=== PATIENT | male | born 1940 | race Caucasian/White ===

== ENCOUNTER 2016-03-31 20:42 | Emergency (ER) | payer OTHER, MEDICARE ==
[~2016-03-31] VITALS: Ht 162.6 cm; Wt 80.7 kg
[~2016-03-31 20:42] MED LIST: ASPIRIN CHILDRE81 MG PO; ASPIRIN325 MG PO; CLOPIDOGREL75 MG PO; CRESTOR20 MG PO; FISH OIL 1,001000 MG PO; LEVOTHYROXINE0.1 M1 PO; LISINOPRIL20 MG PO
--- NOTE | 2016-03-31 21:33 | ED NEURO DEFICIT/STROKE ---
History of Present Illness General Chief Complaint: General Adult Stated Complaint: MOUTH NUMBNESS X2 DAYS Source: patient, old records Exam Limitations: no limitations Vital Signs & Intake/Output Vital Signs & Intake/Output Vital Signs Date Time Temp Pulse Resp B/P Pulse O2 O2 Flow FiO2 Ox Delivery Rate 03/317 96.4 76 16 150/70 95 Room Air 03/31 2046 97.7 86 18 209/68 95 Room Air ED Intake and Output 04/01 0000 03/31 1200 Intake Total Output Total Balance Patient 178 lb Weight Allergies Coded Allergies: penicillin G (UNKNOWN 06/03/15) Reconcile Medications Aspirin 325 MG ECT 1 TAB PO DAILY HEART HEALTH CLOPIDOGREL BISULFATE (Clopidogrel) 75 MG TABLET 1 TAB PO DAILY BLOOD THINNER (Reported) Levothyroxine Sodium 0.1 MG TAB 1 TAB PO DAILY AC THYROID (Reported) Lisinopril 40 MG TABLET 1 TAB PO DAILY BP (Reported) [place]-3/Dha/Epa/Fish Oil (Fish Oil 1,000 MG Softgel) 1,000 MG (120 MG-180 MG) CAPSULE 1 CAP PO DAILY SUPPLEMENT (Reported) Triage Note: STATES THAT HIS LIPS WERE NUMB X 3 DAYS TOOK BENADRYL AND IT WENT AWAY , STATES THAT THE NUMBNESS CAME BACK TONIGHT AND HE TOOK ANOTHER BENADRYL AND IT WENT AWAY AGAIN, STATES THAT HE HAS SORENESS IN HIS L SIDE CHEST, HAS PACEMAKER R SIDE CHEST. Triage Nurses Notes Reviewed? yes HPI: 75-year-old male with multiple medical length. He has a history of RI 2 and 7 cardiac stents, 3 days ago he started having perioral numbness and tingling, he thought maybe he was having allergic reaction and took Benadryl and symptoms resolved. This is happening again several times over the last 3 days and he currently has a symptoms now, taking Benadryl with resolution of symptoms. He also had some achiness in the left upper chest area and left proximal upper arm region on Wednesday which was 3 days ago, he attributed this to a upper position that he was sitting at table while playing cards and he states he sleeps on his left arm which can cause some aching symptoms in the arm as well. He also has tingling in both hands and believes he had a red rash to the bilateral palms that was improved with Benadryl as well. Patient has a pacemaker, he denies any palpitations or dizziness, no weakness in the arms or legs, no gait disturbances no expressive aphasia, he currently has mild upper lip tingling sensation which is his only symptoms. (IRISH CHAO) Past History Travel History Traveled to [place] past 21 day No Medical History Any Pertinent Medical History? 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 SON (myocardial infarction). Hx Contributory? Yes (IRISH CHAO) Review of Systems Review of Systems Constitutional: Reports: see HPI. EENTM: Reports: no symptoms. Respiratory: Reports: no symptoms. Cardiovascular: Reports: see HPI. GI: Reports: no symptoms. Genitourinary: Reports: no symptoms. Musculoskeletal: Reports: no symptoms. Skin: Reports: no symptoms. Neurological/Psychological: Reports: see HPI. Hematologic/Endocrine: Reports: no symptoms. Immunologic/Allergic: Reports: no symptoms. All Other Systems: Reviewed and Negative (IRISH CHAO) Physical Exam Physical Exam General Appearance: well developed/nourished Cranial Nerves: normal hearing, normal speech, PERRL Comments: Well-developed well-nourished person in no acute distress HEENT: Normal EENT exam, extraocular motion intact, no nystagmus. Pupils equally round and reactive to light. Nose is atraumatic. Pharynx normal. No swelling or edema. Neck: Supple, no lymphadenopathy, normal range of motion without pain or tenderness Back: Nontender, no CVA tenderness. Full range of motion Cardiovascular: Regular rate and rhythms no murmurs, normal JVP Respiratory: Chest nontender. No respiratory distress. Breath sounds clear to auscultation bilaterally Abdomen: Soft, nontender nondistended, no appreciable organomegaly. Normal bowel sounds. No ascites Extremity: No edema, no calf tenderness to palpation, normal and equal pulses. Neuro: Alert oriented x3, motor sensory normal, cranial nerves II through XII grossly intact. Skin: No appreciable rash on exposed skin, skin is warm and dry. Psych: Mood and affect is normal, memory and judgment is normal. Core Measures CVA/TIA Diagnosis: No Severe Sepsis Present: No Septic Shock Present: No (DC BARBOZA,IRISH) Progress Differential Diagnosis: acute glaucoma, Jacinto's Palsy, drug intoxication, electrolyte imbalance, encephalitis, hypoglycemia, intracranial Hem., intracranial mass/tumor, meningitis, migraine ZARAGOZA, seizure disorder, stroke, subarachnoid Hem., vertebrobasilar insuff. Plan of Care: Orders Procedure Date/time Status Telemetry/Machine Filler 03/31 2126 Active TROPONIN LEVEL 03/31 2126 Complete MAGNESIUM 03/31 2126 Complete COMPREHENSIVE METABOLIC PANEL 03/31 2126 Complete CBC WITHOUT DIFFERENTIAL 03/31 2126 Complete EKG 03/31 2047 Active Laboratory Tests 03/31/162135: Anion Gap 14, Estimated GFR > 60, BUN/Creatinine Ratio 15.5, Glucose 94, Calcium 9.3, Magnesium 1.7, Total Bilirubin 0.5, AST 28, ALT 35, Alkaline Phosphatase 82 , Troponin I < 0.01, Total Protein 6.8, Albumin 3.9, Globulin 2.9, Albumin/ Globulin Ratio 1.3 03/31/162126: CBC w Diff NO MAN DIFF REQ, RBC 4.81, MCV 90.2, MCH 31.0, RDW 13.0, MPV 8.0, Gran % 53.9, Lymphocytes % 30.3, Monocytes % 10.2 H, Eosinophils % 5.2 H, Basophils % 0.4, Absolute Granulocytes 3.8, Absolute Lymphocytes 2.1, Absolute Monocytes 0.7 H, Absolute Eosinophils 0.4, Absolute Basophils 0, PUBS MCHC 34.4 Diagnostic Imaging: Viewed by Me: CT Scan. Discussed w/RAD: CT Scan. Radiology Impression: PATIENT: MARY ARMSTRONG JR PRESENT AGE: 75 PATIENT ACCOUNT NO: [id number] : 40 LOCATION: [facility] ORDERING PHYSICIAN: IRISH BARBOZA SERVICE DATE: 03/31/16-2126 EXAM TYPE : CAT - CT HEAD WO IV CONTRAST EXAMINATION: CT HEAD WITHOUT CONTRAST CLINICAL INFORMATION: Intermittent numbness in the left arm. Paresthesias. COMPARISON: None. TECHNIQUE: Contiguous axial imaging was performed from the skull base to vertex without intravenous administration of contrast. DLP: 529 mGy-cm. FINDINGS : There is no evidence of acute intracranial hemorrhage or territorial infarction. No abnormal mass effect or midline shift is seen. Bay to white matter differentiation is well preserved. No extra-axial fluid collections are identified. Mild enlargement of the ventricles, sulci, and extra-axial CSF spaces is in keeping with age-appropriate parenchymal volume loss. Small lacunar infarcts are present in the external capsules bilaterally, left larger than right. These likely chronic. No acute infarction is suspected. Calcific atherosclerosis is present within the cavernous and supraclinoid segments of the internal carotid arteries. The osseous structures and soft tissues are normal. The mastoid air cells and visualized portions of the paranasal sinuses are well aerated. IMPRESSION: No acute intracranial pathology. Small lacunar infarcts in the external capsules bilaterally, likely chronic. DICTATED BY: SUNDAY WHITTINGTON MD DATE/TIME DICTATED:03/31/162239 LEAD BURNER SUPERVISOR:EMRCEDES Initial ED EKG: av DUAL PACED RHYTHM Prior EKG: unchanged Rhythm Strip: PACEMAKER Comments: No swelling or signs of allergic reaction or angioedema noted on exam at this time however cannot rule this out as patient has been taking Benadryl. Discussed with Dr. 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 Discussed with patient, understands and agrees with plan, feels any significant swelling he should stop taking lisinopril and start taking Benadryl and consider returning to the ER with worsening symptoms. His CT scan of his head and laboratory is unremarkable except for mild fold coronary infarcts, I do not feel as though he is having TIA/CVA as his symptoms are bilateral and associated with pain or aching in the shoulder and left arm. He has been having symptoms for 3 days and cardiac workup is negative as well. He is stable for outpatient follow-up with cardiology. 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 Gutierrez, tomorrow for possible reaction of the lisinopril. This may be causing angioedema however no significant swelling was seen today on exam. If you do get significant swelling, stop the medication and start taking Benadryl. Departure Forms: Customer Survey General Discharge Information (DC BARBOZA,IRISH) PA/RUSSIAN HISTORY PROFESSOR Co-Sign Statement Statement: ED Attending supervision documentation- [X] I saw and evaluated the patient. I have also reviewed all the pertinent lab results and diagnostic results. I agree with the findings and the plan of care as documented in the PA's/RUSSIAN HISTORY PROFESSOR's documentation. [X] I have reviewed the ED Record and agree with the PA's/RUSSIAN HISTORY PROFESSOR's documentation. [] Additions or exceptions (if any) to the PAs/RUSSIAN HISTORY PROFESSOR's note and plan are summarized below: [] (LAURIE GARNER,JOSE MARTIN Flores)
[2016-03-31] MEDS ORDERED: LISINOPRIL40 M1 PO (21:39)
[2016-03-31 21:48] LABS: ABSOLUTE BASOPHIL COUNT 0 /CUMM (0.0-0.2); ABSOLUTE EOSINOPHIL COUNT 0.4 /CUMM (0.0-0.7); ABSOLUTE GRANULOCYTE CT 3.8 /CUMM (1.4-6.5); ABSOLUTE LYMPH COUNT 2.1 /CUMM (1.2-3.4); ABSOLUTE MONOCYTE COUNT 0.7 /CUMM (0.10-0.60); BASOPHIL % 0.4 % (0.0-2.0); EOSINOPHIL % 5.2 % (0-5); GRANULOCYTE % 53.9 % (42.2-75.2); HEMATOCRIT 43.4 % (42-52); MEAN CORPUSCULAR HGB CONC 34.4 G/DL (33.0-37.0); MEAN CORPUSCULAR VOLUME 90.2 FL (80.0-94.0); PLATELET COUNT 269 /CUMM (130-400); RED BLOOD CELL CT 4.81 /CUMM (4.70-6.10)
[2016-03-31 22:17] VITALS: BP 150/70
--- NOTE | 2016-03-31 22:47 | CT SCAN REPORT ---
EXAMINATION: CT HEAD WITHOUT CONTRAST CLINICAL INFORMATION: Intermittent numbness in the left arm. Paresthesias. COMPARISON: None. TECHNIQUE: Contiguous axial imaging was performed from the skull base to vertex without intravenous administration of contrast. DLP: 529 mGy-cm. FINDINGS: There is no evidence of acute intracranial hemorrhage or territorial infarction. No abnormal mass effect or midline shift is seen. Bay to white matter differentiation is well preserved. No extra-axial fluid collections are identified. Mild enlargement of the ventricles, sulci, and extra-axial CSF spaces is in keeping with age-appropriate parenchymal volume loss. Small lacunar infarcts are present in the external capsules bilaterally, left larger than right. These likely chronic. No acute infarction is suspected. Calcific atherosclerosis is present within the cavernous and supraclinoid segments of the internal carotid arteries. The osseous structures and soft tissues are normal. The mastoid air cells and visualized portions of the paranasal sinuses are well aerated. IMPRESSION: No acute intracranial pathology. Small lacunar infarcts in the external capsules bilaterally, likely chronic.
[2016-07-23] MEDS ORDERED: PROTONIX40 M3 PO (16:00)
== END 2016-03-31 23:03 ==
LOC: ERH 20:42
PROVIDERS: Physician Assistant Surgical
DX: R20.2 Paresthesia of skin (principal)
CPT/HCPCS: 93005; 93010

== ENCOUNTER 2016-04-24 08:22 | Inpatient (IN) | payer OTHER, MEDICARE ==
[~2016-04-24] VITALS: Ht 160 cm; Wt 80.9 kg
[~2016-04-24 08:22] MED LIST changes: +LISINOPRIL40 M1 PO
--- NOTE | 2016-04-24 08:31 | NUR ---
C/O INDIGESTION X 2 HOURS, WOKE UP WITH IT. NOW C/O BURNING PAIN IN CHEST AND ESOPHAGUS RADIATING TO BACK. DENIES SOB, WEAKNESS OR DIZZINESS. STATES HE ATE A STEAK SANDWAUCH WITH ONIONS LATE LAST PM. PMH: SC, PACEMEAKER, HTN. EKG DONE ON ARRIVAL.
--- NOTE | 2016-04-24 08:42 | NUR ---
TAMRA SCRUGGS IN FOR EVAL.
--- NOTE | 2016-04-24 08:51 | ED CARDIAC/CP/PALPITATIONS ---
History of Present Illness General Chief Complaint: Chest Pain Stated Complaint: CP Source: patient, old records Exam Limitations: no limitations Allergies Coded Allergies: penicillin G (UNKNOWN 06/03/15) Reconcile Medications Aspirin 325 MG ECT 1 TAB PO DAILY HEART HEALTH CLOPIDOGREL BISULFATE (Clopidogrel) 75 MG TABLET 1 TAB PO DAILY BLOOD THINNER (Reported) Levothyroxine Sodium 0.1 MG TAB 1 TAB PO DAILY AC THYROID (Reported) [place]-3/Dha/Epa/Fish Oil (Fish Oil 1,000 MG Softgel) 1,000 MG (120 MG-180 MG) CAPSULE 2 CAP PO DAILY SUPPLEMENT (Reported) Valsartan 80 MG TABLET 1 TAB PO DAILY HEART (Reported) Triage Note: C/O INDIGESTION X 2 HOURS, WOKE UP WITH IT. NOW C/O BURNING PAIN IN CHEST AND ESOPHAGUS RADIATING TO BACK. DENIES SOB, WEAKNESS OR DIZZINESS. PMH: MO, PACEMEAKER, HTN. EKG DONE ON ARRIVAL. Triage Nurses Notes Reviewed? yes HPI: Patient is a 75-year-old male presents for evaluation of chest discomfort. Patient reports that burning in his chest awoke him from sleep at approximately 7 AM this morning. Burning sensation and sharp sensation was 8 out of 10 at home, patient reports he took Tums and sensation is currently a 3 out of 10. Mild radiation to his back. Patient has a history of 2 myocardial infarctions and has 7 stents, reports he did not have chest pain with either of his to previous myocardial infarctions. Patient did not take any of his medications this morning. Patient ate a sandwich with onions on it yesterday evening and believes that his symptoms may be secondary to this. Denies dyspnea, change in symptoms with exertion, nausea, vomiting, diaphoresis. (SHEBA BARBOZA,IRISH) Vital Signs & Intake/Output Vital Signs & Intake/Output Vital Signs Date Time Temp Pulse Resp B/P Pulse O2 O2 Flow FiO2 Ox Delivery Rate 04/24 1216 96.9 60 20 137/73 96 Room Air 04/24 1215 96.9 60 20 137/73 04/24 1020 96.7 61 20 142/73 98 Room Air 04/24 0930 98 Room Air 04/24 0922 66 20 158/67 99 Room Air 04/24 0832 97.5 75 18 190/89 98 Room Air Past History Travel History Traveled to [place] past 21 day No Medical History Any Pertinent Medical History? 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 SON (myocardial infarction). Hx Contributory? Yes (IRISH HOLLEY) Review of Systems Review of Systems Constitutional: Denies: chills, fever. EENTM: Reports: no symptoms. Respiratory: Denies: cough, short of breath. Cardiovascular: Reports: see HPI. GI: Denies: abdominal pain, nausea, vomiting. Genitourinary: Reports: no symptoms. Musculoskeletal: Reports: back pain. Skin: Reports: no symptoms. Neurological/Psychological: Reports: no symptoms. Hematologic/Endocrine: Reports: no symptoms. Immunologic/Allergic: Reports: no symptoms. (IRISH HOLLEY) Physical Exam Physical Exam General Appearance: well developed/nourished, alert, awake Head: atraumatic, normal appearance Eyes: Bilateral: normal appearance, PERRL, EOMI. Ears, Nose, Throat: normal pharynx, normal ENT inspection, hearing grossly normal Neck: normal inspection, supple, full range of motion Respiratory: normal breath sounds, chest non-tender, no respiratory distress, lungs clear Cardiovascular: regular rate/rhythm (no appreciable murmur) Peripheral Pulses: 2+ radial (R), 2+ radial (L), 2+ dorsalis pedis (R), 2+ dorsalis pedis (L) Gastrointestinal: soft, non-tender Back: normal inspection, normal range of motion, no vertebral tenderness Extremities: normal inspection, normal capillary refill, normal range of motion, no edema, no calf tenderness Neurologic/Psych: no motor/sensory deficits, awake, alert, oriented x 3, normal gait, normal mood/affect Skin: intact, normal color, warm/dry Lymphatic: no anterior cervical aidan Core Measures ACS in differential dx? Yes ASA ordered for poss ACS? Yes-ordered Severe Sepsis Present: No Septic Shock Present: No (IRISH HOLLEY) Progress Differential Diagnosis: AMI, aortic dissection, CHF/pulm edema, musculoskeletal pain, pancreatitis, pericarditis, pneumonia, pneumothorax, pulmonary embolism, sepsis, unstable angina, V-fib/V-Tach Diagnostic Imaging: Viewed by Me: Radiology Read. Discussed w/RAD: Radiology Read. CXR Impression: PATIENT: MARY ARMSTRONG JR PRESENT AGE : 75 PATIENT ACCOUNT NO: [id number] : 40 LOCATION: ER ORDERING PHYSICIAN: IRISH BARBOZA SERVICE DATE: 04/24/16 EXAM TYPE: RAD - XRY-PORTABLE CHEST XRAY EXAMINATION: XR PORTABLE CHEST CLINICAL INFORMATION: Chest pain COMPARISON: 05/06/2014 TECHNIQUE: Portable view of the chest was obtained. FINDINGS: Right-sided pacemaker lead tips overlie the right atrium and right ventricle. Lung volumes are mildly decreased. No focal consolidation is seen. No evidence of pneumothorax, pleural effusion, or pulmonary edema. The cardiac silhouette is prominent and may be accentuated by low lung volumes. Degenerative changes are noted in the spine. IMPRESSION: No acute cardiopulmonary findings. DICTATED BY: ERICKA PEDRAZA MD DATE/TIME DICTATED:923 FARM ADVISER:MERCEDES DATE/TIME TRANSCRIBED:04/24/16923 CONFIDENTIAL, DO NOT COPY WITHOUT APPROPRIATE AUTHORIZATION. <Electronically signed in Other Vendor System> SIGNED BY: ERICKA PEDRAZA MD 04/24/16928 Initial ED EKG: pacemaker rhythm Prior EKG: unchanged Rhythm Strip: normal sinus rhythm (IRISH HOLLEY) Plan of Care: Orders Procedure Date/time Status LIPID PANEL 04/25 0600 Active CBC WITHOUT DIFFERENTIAL 04/25 0600 Active BASIC ELECTROLYTES PLUS BUN&CR 04/25 0600 Active Heart Healthy Diet 04/24 L Active TROPONIN LEVEL 04/24 2100 Active EKG 04/24 2100 Active PARTIAL THROMBOPLASTIN TIME 04/24 1615 Active PROTHROMBIN TIME 04/24 1615 Active TROPONIN LEVEL 04/24 1500 Active EKG 04/24 1500 Active ECHOCARDIOGRAM 04/24 1158 Active Pathway - chart 04/24 1134 Active House Staff 04/24 1134 Active Patient Data 04/24 1134 Active Code Status 04/24 1134 Active Admit to inpatient 04/24 1045 Active Add-on Test (ER Only) 04/24 1011 Active Patient Data 04/24 1008 Active Intake & Output 04/24 0855 Active PARTIAL THROMBOPLASTIN TIME 04/24 0849 Complete PROTHROMBIN TIME 04/24 0849 Complete Telemetry/Loader 04/24 0846 Active TROPONIN LEVEL 04/24 0846 Complete COMPREHENSIVE METABOLIC PANEL 04/24 0846 Complete CBC WITHOUT DIFFERENTIAL 04/24 0846 Complete EKG 04/24 0824 Active Telemetry/Loader 04/24 UNK Active Current Medications Sig/Arley Start time Last Medication Dose Stop Time Status Admin Aspirin 325 MG DAILY 04/25 1000 AC (Aspirin) Laboratory Tests 04/24/16 1134: Sodium Cancelled, Potassium Cancelled, Chloride Cancelled, Carbon Dioxide Cancelled, Anion Gap Cancelled, BUN Cancelled, Creatinine Cancelled, BUN/ Creatinine Ratio Cancelled, CBC w Diff Cancelled, WBC Cancelled, RBC Cancelled, Hgb Cancelled, Hct Cancelled, MCV Cancelled, MCH Cancelled, RDW Cancelled, Plt Count Cancelled, MPV Cancelled, PUBS MCHC Cancelled 04/24/16 0849: Anion Gap 12, Estimated GFR > 60, BUN/Creatinine Ratio 18.2, Glucose 145 H, Calcium 9.3, Total Bilirubin 0.5, AST 26, ALT 41, Alkaline Phosphatase 84, Troponin I < 0.01, Total Protein 6.8, Albumin 4.0, Globulin 2.8, Albumin/ Globulin Ratio 1.4, PT 11.9, INR 1.13, APTT 33, CBC w Diff NO MAN DIFF REQ, RBC 5.00, MCV 89.5, MCH 30.9, RDW 12.8, MPV 8.1, Gran % 53.1, Lymphocytes % 32.5, Monocytes % 9.9 H, Eosinophils % 4.0, Basophils % 0.5, Absolute Granulocytes 3.7, Absolute Lymphocytes 2.2, Absolute Monocytes 0.7 H, Absolute Eosinophils 0.3, Absolute Basophils 0, PUBS MCHC 34.5 0905: Patient reports that chest discomfort has resolved after the GI cocktail and aspirin. Continues with mild upper back discomfort. Discussed with and seen by Dr. Jacinto. 1000: Discussed with Dr. Gutierrez: start on heparin and admit to his service (SHEBA BARBOZA,IRISH) Departure Departure Time of Disposition: 1004 Disposition: HOME OR SELF CARE Condition: Stable Clinical Impression Primary Impression: Unstable angina Referrals: FAUSTINO GARNER,CLARA Valenzuela (PCP/Family) Departure Forms: Customer Survey General Discharge Information Admission Note Spoke With: DEBBIE GARNER PhD,ALICIA Valenzuela Documentation of Exam: Documentation of any treatments & extenuating circumstances including Concerns Regarding Discharge (functional status, medication knowledge or non-compliance, living conditions, etc.) that warrant an admission rather than observation: IV heparin, serial EKGs, serial troponins, cardiology evaluation. Patient may require stress test or cardiac catheterization. Patient with 2 myocardial infarctions which presented atypically, patient is at high risk of discharged. (IRISH HOLLEY) PA/ADMINISTRATIVE SUPERVISOR Co-Sign Statement Statement: ED Attending supervision documentation- [X] I saw and evaluated the patient. I have also reviewed all the pertinent lab results and diagnostic results. I agree with the findings and the plan of care as documented in the PA's/ADMINISTRATIVE SUPERVISOR's documentation. [] I have reviewed the ED Record and agree with the PA's/ADMINISTRATIVE SUPERVISOR's documentation. [] Additions or exceptions (if any) to the PAs/ADMINISTRATIVE SUPERVISOR's note and plan are summarized below: [] (REYNALDO GARNER,GEORGIE Spangler) Critical Care Note Critical Care Note Critical Care Time: non-applicable (IRISH HOLLEY)
--- NOTE | 2016-04-24 08:53 | NUR ---
BLOOD DRAWN AND SENT TO THE LAB (SST,LAV,BLUE,LATIF)
--- NOTE | 2016-04-24 08:55 | NUR ---
MEDICATED PER EMAR. PORT CXR AT BEDSIDE.
[2016-04-24 09:04] LABS: ABSOLUTE BASOPHIL COUNT 0 /CUMM (0.0-0.2); ABSOLUTE EOSINOPHIL COUNT 0.3 /CUMM (0.0-0.7); ABSOLUTE GRANULOCYTE CT 3.7 /CUMM (1.4-6.5); ABSOLUTE LYMPH COUNT 2.2 /CUMM (1.2-3.4); ABSOLUTE MONOCYTE COUNT 0.7 /CUMM (0.10-0.60); BASOPHIL % 0.5 % (0.0-2.0); GRANULOCYTE % 53.1 % (42.2-75.2); HEMATOCRIT 44.8 % (42-52); MEAN CORPUSCULAR HGB 30.9 PG (27.0-31.0); MEAN CORPUSCULAR HGB CONC 34.5 G/DL (33.0-37.0); MEAN CORPUSCULAR VOLUME 89.5 FL (80.0-94.0); MEAN PLATELET VOLUME 8.1 FL (7.4-10.4); PLATELET COUNT 262 /CUMM (130-400); RBC DISTRIBUTION WIDTH 12.8 % (11.5-14.5); WHITE BLOOD CELL COUNT 6.9 /CUMM (4.8-10.8)
[2016-04-24] MEDS ORDERED: VALSARTAN80 M1 PO (09:11)
--- NOTE | 2016-04-24 09:29 | RADIOLOGY REPORT ---
EXAMINATION: XR PORTABLE CHEST CLINICAL INFORMATION: Chest pain COMPARISON: 05/06/2014 TECHNIQUE: Portable view of the chest was obtained. FINDINGS: Right-sided pacemaker lead tips overlie the right atrium and right ventricle. Lung volumes are mildly decreased. No focal consolidation is seen. No evidence of pneumothorax, pleural effusion, or pulmonary edema. The cardiac silhouette is prominent and may be accentuated by low lung volumes. Degenerative changes are noted in the spine. IMPRESSION: No acute cardiopulmonary findings.
--- NOTE | 2016-04-24 10:02 | NUR ---
TAMRA SCRUGGS IN TO REVIEW POC.
--- NOTE | 2016-04-24 10:15 | NUR ---
HEPARIN DRIP STARTED.
--- NOTE | 2016-04-24 10:24 | History & Physical ---
See Addendum General Information and HPI MD Statement: I have seen and personally examined MARY ARMSTRONG JR and documented this H&P. The patient is a 75 year old M who presented with a patient stated chief complaint of substernal chest discomfort and indigestion since professor of communication. [ ]. Source of Information: patient Exam Limitations: no limitations History of Present Illness: Patient is 75-year-old gentleman with past medical history significant for hypertension, hypothyroidism and childhood rheumatic fever, significant cardiac history including myocardial infarction 2 and status post stent placement in 2014, history of complete heart block status post pacemaker placement came to the emergency room after experiencing substernal chest discomfort/burning sensation since professor of communication. Patient admits that he had a sandwich from [employer] with onions last night and woke up professor of communication with substernal discomfort took some Tums and went back to sleep but later on again woke up with same symptoms and took some Tums again but symptoms were not improved and he came to ER. He denied any palpitations, diaphoresis, left arm pain but admits that his substernal discomfort/pain is burning in nature and radiating to back. Of note patient had previous episodes of significant myocardial infarction/Cornery artery stenosis without any significant symptoms at the time of presentation. Patient was given aspirin and GI cocktail in ER without any significant improvement in his symptoms. At time of interview patient admits that he still feels some burning sensations in chest. Patient denied any fever, chills, cough, headache, dizziness, any urinary or bowel complaints. Vital signs on admission were temperature 97.5, pulse 75, respiratory rate 18, blood pressure 190/89 later on came down to 158/67 and he was saturating 98% on room air. Heart shows WBC count 6.9, hemoglobin 15.4, hematocrit 44.8 and platelet count 262, sodium 142, potassium 3.9, creatinine 1.1 and negative first set of troponins Allergies/Medications Allergies: Coded Allergies: penicillin G (UNKNOWN 06/03/15) Home Med list Aspirin 325 MG ECT 1 TAB PO DAILY HEART HEALTH CLOPIDOGREL BISULFATE (Clopidogrel) 75 MG TABLET 1 TAB PO DAILY BLOOD THINNER (Reported) Levothyroxine Sodium 0.1 MG TAB 1 TAB PO DAILY AC THYROID (Reported) Sterling-3/Dha/Epa/Fish Oil (Fish Oil 1,000 MG Softgel) 1,000 MG (120 MG-180 MG) CAPSULE 2 CAP PO DAILY SUPPLEMENT (Reported) Valsartan 80 MG TABLET 1 TAB PO DAILY HEART (Reported) Compliance With Home Meds: GOOD Past History Travel History Traveled to [place] past 21 day No Medical History Neurological: NONE EENT: NONE Cardiovascular: CAD, hypertension, hyperlipidemia, myocardial infarction, CARDIAC STENTS Gastrointestinal: NONE Hepatic: NONE Renal: NONE Musculoskeletal: NONE Psychiatric: NONE Endocrine: NONE Blood Disorders: NONE Cancer(s): NONE 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 SON (myocardial infarction). Psychosocial History Services at Home: NONE ETOH Use: denies use Review of Systems Review of Systems Constitutional: Denies: chills, diaphoresis, fever. EENTM: Denies: blurred vision, double vision. Cardiovascular: Reports: chest pain. Denies: edema. Respiratory: Denies: cough, hemoptysis. GI: Reports: see HPI. Genitourinary: Denies: discharge, dysuria. Musculoskeletal: Denies: back pain, gout, joint pain. Exam & Diagnostic Data Last 24 Hrs of Vital Signs/I&O Vital Signs Date Time Temp Pulse Resp B/P Pulse O2 O2 Flow FiO2 Ox Delivery Rate 04/24 1020 96.7 61 20 142/73 98 Room Air 04/24 0930 98 Room Air 04/24 0922 66 20 158/67 99 Room Air 04/24 0832 97.5 75 18 190/89 98 Room Air Intake & Output 04/24 1600 04/24 0800 04/24 0000 Intake Total Output Total Balance Patient 178 lb Weight Physical Exam General Appearance Alert, Oriented X3, Cooperative, No Acute Distress Skin No Rashes HEENT Atraumatic Cardiovascular Regular Rate, Normal S1, Normal S2 Lungs Clear to Auscultation Abdomen Soft Extremities No Clubbing, No Cyanosis, No Edema Last 24 Hrs of Labs/Joe: Laboratory Tests 04/24/16 1134: Sodium Cancelled, Potassium Cancelled, Chloride Cancelled, Carbon Dioxide Cancelled, Anion Gap Cancelled, BUN Cancelled, Creatinine Cancelled, BUN/ Creatinine Ratio Cancelled, CBC w Diff Cancelled, WBC Cancelled, RBC Cancelled, Hgb Cancelled, Hct Cancelled, MCV Cancelled, MCH Cancelled, RDW Cancelled, Plt Count Cancelled, MPV Cancelled, PUBS MCHC Cancelled 04/24/16 0849: Anion Gap 12, Estimated GFR > 60, BUN/Creatinine Ratio 18.2, Glucose 145 H, Calcium 9.3, Total Bilirubin 0.5, AST 26, ALT 41, Alkaline Phosphatase 84, Troponin I < 0.01, Total Protein 6.8, Albumin 4.0, Globulin 2.8, Albumin/ Globulin Ratio 1.4, PT 11.9, INR 1.13, APTT 33, CBC w Diff NO MAN DIFF REQ, RBC 5.00, MCV 89.5, MCH 30.9, RDW 12.8, MPV 8.1, Gran % 53.1, Lymphocytes % 32.5, Monocytes % 9.9 H, Eosinophils % 4.0, Basophils % 0.5, Absolute Granulocytes 3.7, Absolute Lymphocytes 2.2, Absolute Monocytes 0.7 H, Absolute Eosinophils 0.3, Absolute Basophils 0, PUBS MCHC 34.5 Diagnostic Data EKG Results Paced rhythm with no acute ST T-wave changes as compared to previous EKGs CXR Results SERVICE DATE: 04/24/16 EXAM TYPE: RAD - XRY-PORTABLE CHEST XRAY EXAMINATION: XR PORTABLE CHEST CLINICAL INFORMATION: Chest pain COMPARISON: 05/06/2014 TECHNIQUE: Portable view of the chest was obtained. FINDINGS: Right-sided pacemaker lead tips overlie the right atrium and right ventricle. Lung volumes are mildly decreased. No focal consolidation is seen. No evidence of pneumothorax, pleural effusion, or pulmonary edema. The cardiac silhouette is prominent and may be accentuated by low lung volumes. Degenerative changes are noted in the spine. IMPRESSION: No acute cardiopulmonary findings. Assessment/Plan Assessment: Patient is 75-year-old gentleman with past medical history significant for hypertension, hypothyroidism and childhood rheumatic fever, significant cardiac history including myocardial infarction 2 and status post stent placement in 2014, history of complete heart block status post pacemaker placement came to the emergency room after experiencing substernal chest discomfort/burning sensation since professor of communication. Due to his extensive cardiac history and previous silent angina/infarct he is very high risk for acute coronary syndrome/unstable angina versus N STEMI We'll admit patient on telemetry floor and will take care for the following problems Problem #1 substernal chest discomfort most likely due to unstable angina/an STEMI but could be due to GERD -Vital signs every shift -Continues telemetry menorah monitoring -Troponins and EKG 3 -Nitroglycerin paste 1 inch every 6 -Will continue heparin drip -Echocardiogram -Cardiology consultation with Dr. Gutierrez -Lipid profile -Will consult cardiology for further evaluation and further plan for PCI if needed Problem #2 history of hypertension Will continue his home medications, patient was recently switched from lisinopril to valsartan -Patient's is not on statin as for intolerance we will discuss with banking representative to start him on any statins Problem #3 history of hypothyroidism Will continue his home medications Patient is full code Heart healthy diet , Pharmacological DVT prophylaxis As Ranked By This Provider Problem List: 1. Unstable angina Core Measures/Miscellaneous Acute Coronary Syndrome ACS Diagnosis: Yes Date of most recent Echo 05/07/14 Last Known EF % 65 ASA W/I 24hr of admit Yes Beta-Jen W/I 24hrs No (PACE MAKER) LDL assessed W/I 24 hrs Yes Currently on Statin No Comment CANNOT TOLERATE Cerebrovascular Accident CVA/TIA Diagnosis: No Congestive Heart Failure CHF Diagnosis: No Venous Thromboembolism VTE Risk Factors: Age > 40 VTE Prophylaxis Ordered Inpt: [facility] prophylaxis d/t: No contraindications No VTE Pharm Prophylaxis d/t: No contraindications VTE Diagnosis: No VTE Type: NONE VTE Confirmed by (Test): NONE Severe Sepsis Severe Sepsis Present: No Septic Shock Septic Shock Present: No Miscellaneous Documentation Attending Case Discussed With: DEBBIE GARNER PhD,ALICIA Valenzuela Primary Care Physician: CLARA HARMON MD Patient sees these Specialists [facility] Level of Patient Care: Telemetry Resident Review Statement Resident Statement: examined this patient Other Findings: Patient is admitted by resident
[2016-04-24 10:31] LABS: PT 11.9 SEC (9.4-12.5); PTT 33 SEC (25-37)
--- NOTE | 2016-04-24 10:54 | NUR ---
HOUSESTAFF AT BEDSIDE FOR EVAL.
--- NOTE | 2016-04-24 11:18 | NUR ---
HEART HEALTHY TRAY ORDERED FROM [facility] PER ORDERS TAMRA SCRUGGS
--- NOTE | 2016-04-24 11:59 | NUR ---
DUE FOR EKG AND TROP AT 1500. AWAITING BED ASSIGNMENT. FAMILY AT BEDSIDE. Informed waiting has been performed.
--- NOTE | 2016-04-24 12:17 | NUR ---
BED 180-2
--- NOTE | 2016-04-24 12:30 | NUR ---
ECHO AT BEDSIDE.
--- NOTE | 2016-04-24 12:46 | NUR ---
REPORT TO [facility] ON [address].
--- NOTE | 2016-04-24 12:58 | NUR ---
DR LEWIS AT BEDSIDE.
--- NOTE | 2016-04-24 13:07 | NUR ---
REPEAT EKG DONE PER DR LEWIS'S REQUEST.
--- NOTE | 2016-04-24 13:25 | NUR ---
PT TO FLOOR VIA STRETCHER WITH THIS RN AND TRANSPORT ON MONITOR. ALL PAPERWORK AND BELONGINGS SENT. CLINICAL STATUS UNCHANGED.
[2016-04-24 13:54] VITALS: BP 110/60
--- NOTE | 2016-04-24 15:34 | Cons- Cardiology ---
General Information and HPI Consulting Request Date of Consult: 04/24/16 Requested By: DEBBIE GARNER PhD,ALICIA Valenzuela History of Present Illness: Frank is a 75 year old male who carries a history of hypertension, hyperthyroidism, and childhood rheumatic fever. He is also status post permanent pacemaker placement for complete heart block, and he has also undergone angioplasty for coronary artery disease following a myocardial infarction. Clyde has been having a mild chest discomfort for a couple weeks that was associated with eructation. It was a burning sensation that he attributed to heartburn. Last evening this patient experienced a significantly more severe episode, also associated with eructation that did not resolved and prompted his presentation to the ER for further evaluation. This discomfort was only partially relieved by antacid therapy with TUMS. He otherwise denies nausea, vomiting or diaphoresis. He has no shortness of breath, lightheadedness or palpitations. At baseline he is moderately active although he does tend to pace himself. It should be recalled that at the time of his MS he did not have any chest discomfort. Frank is s/p cardiac catheterization following a stress test that disclosed inferior ischemia. He also had episodes of NSVT. Coronary revascularization was performed on the RCA followed by the LAD and LCX. His pacemaker was interrogated a couple visits ago and showed two high ventricular rate events which were completely asymptomatic. Frank's latest lipid profile showed an elevated LDL of 108, with an HDL of 45, and triglycerides of 168. LFT's are within normal limits. It should be recalled that Frank needed to stop his Crestor and was not able to tolerate other statins due to concerns over the patient's LFT's, as well as due to muscle cramps. Crestor was effective in the sense that it kept his HDL at 50, with an LDL of 100, but his muscle aches were intolerable and this drug needed to be stopped. Frank has also tried Cholestyramine and Gemfibrozil; however, this resulted in urinary stones and abdominal pain. Finally, Niaspan has also been tried. His most recent stress test from 2012 showed a good exercise tolerance of 7 minutes with shortness of breath and leg cramping. He did have 1/[address] depressions in the in the inferior and lateral leads with mid to apical ischemia on nuclear imaging. His EF was 75% with mild inferior hypokinesis. His echo showed mild LVH with sever LAE and mild MR and TR. To review Clyde's prior history: This patient presented to the emergency room after passing out. A temporary pacemaker wire was placed for complete heart block, followed by permanent pacemaker placement. He ruled in for myocardial infarction and, therefore, underwent cardiac catheterization. This study showed a normal left main. The LAD was diffusely diseased, with a 50% proximal stenosis which was non-flow limiting. This was followed by an 80% long proximal stenosis. There was also a 70% mid stenosis at the take-off of a large second diagonal branch, followed very distally in the LAD by a 50% non-flow limiting lesion. The left circumflex harbored luminal irregularities. The right coronary artery is a dominant vessel with an 80% ostial PDA lesion. Left ventriculography showed an overall EF of 60%. Angioplasty was performed with placement of a 3.0 x 24 mm Taxus stent to the proximal LAD. A second 3.0 x 8 mm Taxus stent was placed proximally, with overlap of the first stent to completely cover the lesion. More distally, a 2.5 x 8 mm Taxus stent was placed, which resulted in zero percent residual stenosis, with normal flow. In consideration of persistent chest tightness with exertion, which I attributed to the apex and ostial PDA lesion, I brought the patient back to the [facility] for angioplasty. At that time the PDA appeared to have an 80% to 85% ostial stenosis. It received a 2.5 x 12 mm Taxus stent dilated up to 14 marcelino. This resulted in minimal residual stenosis with MARGARITA-3 flow. The remainder of the patient's coronary anatomy was revisualized and the LAD appeared to be patent at the prior stent site. There was only 30% residual stenosis in the LAD and left circumflex with luminal irregularities. His most recent cath showed an 80% LAD, 70% LCX and 99% mid RCA with 60% ostial PDA. These lesions were all stented to 0% residual. The patient's pacer, when last evaluated, had an estimated battery longevity of approximately five years. In the past interrogation it showed two atrial high rate episodes with mode switching twelve times, which was less than 0.1% of the time. He had no ventricular high rate episodes, although he did have a total of 134,000 single PVC's, and 41 runs of PVC's, with 108 runs of PAC's. Allergies/Medications Allergies: Coded Allergies: penicillin G (UNKNOWN 06/03/15) Home Med List: Aspirin 325 MG ECT 1 TAB PO DAILY HEART HEALTH CLOPIDOGREL BISULFATE (Clopidogrel) 75 MG TABLET 1 TAB PO DAILY BLOOD THINNER (Reported) Levothyroxine Sodium 0.1 MG TAB 1 TAB PO DAILY AC THYROID (Reported) Standish-3/Dha/Epa/Fish Oil (Fish Oil 1,000 MG Softgel) 1,000 MG (120 MG-180 MG) CAPSULE 2 CAP PO DAILY SUPPLEMENT (Reported) Valsartan 80 MG TABLET 1 TAB PO DAILY HEART (Reported) Review of Systems Review of Systems: A twelve point review of systems is unremarkable. 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 SON (myocardial infarction). Psychosocial History Where Do You Live? Home Services at Home: NONE Smoking Status: Former Smoker ETOH Use: denies use Exam & Diagnostic Data Vital Signs and I&O Vital Signs Date Time Temp Pulse Resp B/P Pulse O2 O2 Flow FiO2 Ox Delivery Rate 04/24 1354 97.9 70 18 110/60 95 Room Air 04/24 1337 Room Air 04/24 1216 96.9 60 20 137/73 96 Room Air 04/24 1215 96.9 60 20 137/73 04/24 1020 96.7 61 20 142/73 98 Room Air 04/24 0930 98 Room Air 04/24 0922 66 20 158/67 99 Room Air 04/24 0832 97.5 75 18 190/89 98 Room Air Intake & Output 04/24 1600 04/24 0800 04/24 0000 04/23 1600 04/23 0800 04/23 0000 Intake Total 240 Output Total Balance 240 Intake, Oral 240 Patient 178 lb Weight Physical Exam: General: WD/ WN male in NAD; alert and oriented x 3 HEENT: NC/ AT, PERRL, EOMI, clear oropharynx Neck: no JVD, no carotid bruit Heart: RRR with w/6 systolic murmur Lungs: clear bilaterally Abdomen: soft, NT, +ve bowel sounds Extremities: no edema Diagnostic Data EKG Results ventricular paced rhythm Assessment/Plan Assessment/Plan * This patient has chest discomfort that is progressing is severity over the past few weeks. It is suggestive of ischemia although his ECG is not useful for diagnosis due to a 100% paced rhythm. Although there was some relief by antacid therapy this relief is not complete. We will treat this patient as an unstable angina and will admit him to telemtery and will follow three sets of cardiac enzymes. He should be started on IV heparin and we will continue aspirin and Plavix. We will also begin a statin. The patient previously had muscle achiness related to this medication but for now he should be on this class of medications. We will also initiate treatment with NTG paste. Finally, it is not unreasonable to begin Protonix 40mg daily in case there is a GI component to this patient's discomfort. * Continue Diovan for treatment of hypertension * repeat an echocardiogram * This patient has a permanent pacemaker for complete heart block. Consult Acknowledgment - Thank you for your consult request.
[2016-04-24 15:42] VITALS: BP 102/62
[2016-04-24 16:01] VITALS: BP 130/74
--- NOTE | 2016-04-24 16:16 | Event Note ---
Event Note Event Note: I was told that the patient is having chest pain. He said that he started having chest pain since last 15min after eating. It is 2.Vitals wrere stable, we ordered state Troponin and EKG. EKG showed minimal ST elevation in lead III,V3 and V4. We discussed about the patient to Dr. Gutierrez. According to him we can give sublingual nitroglycerin and continue him on heparin drip. We'll watch for Vitals and chest pain.
[2016-04-24 16:34] VITALS: BP 98/60
[2016-04-24 17:05] LABS: PT 12.8 SEC (9.4-12.5)
[2016-04-24 17:57] LABS: PTT > 120 SEC (25-37)
[2016-04-24 22:40] VITALS: BP 110/60
[2016-04-25 01:52] LABS: PTT 54 SEC (25-37)
--- NOTE | 2016-04-25 07:50 | ECHOCARDIOGRAM REPORT ---
MARY ARMSTRONG Age: 75 : 1940 Gender: M Exam Date: 04/24/2016 12:31 Exam Location: ER Ht (in): 64 Wt (lb): 178 BSA: 1.94 BP: 142 / 73 Ordering Physician: ANISHA BURK MD Referring Physician: ANISHA BURK MD Technologist: Steve Chin CARLTON Room Number: 6 Indications: Chest Pain Rhythm: atrial sensed and ventricular paced Technical Quality: fair FINDINGS Left Ventricle Normal left ventricular size with mild left ventricular hypertrophy. Normal systolic function with no obvious regional wall motion abnormalities. The ejection fraction is visually estimated at 80%. Right Ventricle The right ventricle is normal in size and function. A pacemaker lead is noted. Right Atrium The right atrium is normal in size. Left Atrium The left atrium is normal in size. The interatrial septum is intact. Mitral Valve The mitral valve is normal in structure and function. There is trace mitral regurgitation. Aortic Valve Structurally normal aortic valve without significant sclerosis or stenosis. There is no aortic regurgitation. Tricuspid Valve The tricuspid valve is normal in structure and function. There is trace tricuspid regurgitation. Pulmonary artery systolic pressure is normal. Pulmonic Valve Structurally normal pulmonic valve. There is no pulmonic regurgitation. Pericardium Normal pericardium without effusion. No pleural effusion. Great Vessels Normal aortic root dimension. The aortic arch and great vessels are well seen and are normal. CONCLUSIONS 1. Normal EF of 80% with no regional wall motion abnormalities. 2. Mild left ventricular hypertrophy. 3. Trace mitral regurgitation. 4. Trace tricuspid regurgitation. 5. Pacemaker lead is noted. Dimas Gutierrez M.D. (Electronically Signed) Final Date: 25 April 2016 07:50 MEASUREMENTS (Male / Female) Normal Values 2D ECHO LV Diastolic Diameter PLAX 4.3 cm 4.2 - 5.9 / 3.9 - 5.3 cm LV Systolic Diameter PLAX 2.1 cm 2.1 - 4.0 cm LV Fractional Shortening PLAX 51.2 % 25 - 46 % LV Ejection Fraction 2D Teich 82.7 % IVS Diastolic Thickness 1.4 cm LVPW Diastolic Thickness 1.4 cm LV Relative Wall Thickness 0.7 RV Internal Dim ED PLAX 2.4 cm 1.9 - 3.8 cm LVOT Diameter 1.8 cm Aortic Root Diameter 2.6 cm LA Systolic Diameter LX 2.9 cm 3.0 - 4.0 / 2.7 - 3.8 cm Ascending Aorta Diameter 2.6 cm DOPPLER AV Peak Velocity 125.0 cm/s AV Peak Gradient 6.3 mmHg AV Mean Velocity 85.3 cm/s AV Mean Gradient 3.0 mmHg AV Velocity Time Integral 25.8 cm LVOT Peak Velocity 86.5 cm/s LVOT Peak Gradient 3.0 mmHg LVOT Mean Velocity 49.2 cm/s LVOT Mean Gradient 1.0 mmHg LVOT Velocity Time Integral 23.7 cm LVOT Stroke Volume 60.3 cm AV Area Cont Eq vti 2.3 cm AV Area Cont Eq pk 1.8 cm MV Peak Velocity 105.0 cm/s MV Peak Gradient 4.4 mmHg MV Mean Velocity 58.0 cm/s MV Mean Gradient 2.0 mmHg Mitral E Point Velocity 81.4 cm/s Mitral A Point Velocity 115.0 cm/s Mitral E to A Ratio 0.7 MV PHT Velocity 99.1 cm/s MV Deceleration [place] 228.0 cm/s MV Pressure Half Time 130.4 ms MV Area PHT 1.7 cm MV Deceleration Time 327.0 ms TR Peak Velocity 217.0 cm/s TR Peak Gradient 18.8 mmHg Right Atrial Pressure 5.0 mmHg Pulmonary Artery Systolic Pressu 23.8 mmHg Right Ventricular Systolic Press 23.8 mmHg PV Peak Velocity 113.0 cm/s PV Peak Gradient 5.1 mmHg PV Mean Velocity 71.9 cm/s PV Mean Gradient 3.0 mmHg PV Velocity Time Integral 24.0 cm LV E' Lateral Velocity 7.3 cm/s Mitral E to LV E' Lateral Ratio 11.1 LV E' Septal Velocity 5.9 cm/s Mitral E to LV E' Septal Ratio 13.7
[2016-04-25 08:58] VITALS: BP 110/80
--- NOTE | 2016-04-25 09:35 | PN- Housestaff ---
See Addendum Subjective Follow-up For: Unstable angina Tele-Events Since Last Visit: Sinus rhythm, single pacing Subjective: Patient was seen and examined this morning, vital signs are stable. He denied any chest pain, shortness of breath, diaphoresis, palpitation. He reported low back pain that improved with atenolol. No overnight events Review of Systems Constitutional: Denies: see HPI. Objective Last 24 Hrs of Vital Signs/I&O Vital Signs Date Time Temp Pulse Resp B/P Pulse O2 O2 Flow FiO2 Ox Delivery Rate 04/25 1755 63 120/76 04/25 1530 97.7 63 20 122/60 96 Room Air 04/25 1221 65 130/82 04/25 0906 68 110/80 04/25 0858 97.9 68 20 110/80 93 Room Air 04/25 0800 Room Air 04/24 2240 98.2 68 18 110/60 96 Room Air Intake & Output 04/25 1600 04/25 0800 04/25 0000 Intake Total 727.2 245 720 Output Total 250 Balance 727.2 -5 720 Intake, IV 127.2 125 Intake, Oral 600 120 720 Output, Urine 250 Physical Exam General Appearance: Alert, Oriented X3, Cooperative, No Acute Distress Skin: No Rashes, No Breakdown, No Significant Lesion HEENT: Atraumatic, PERRLA, EOMI, Mucous Membr. moist/pink Neck: Supple Cardiovascular: Regular Rate, Normal S1, Normal S2, No Murmurs Lungs: Clear to Auscultation, Normal Air Movement Abdomen: Normal Bowel Sounds, Soft, No Tenderness Neurological: Normal Gait, Normal Speech, Strength at 5/5 X4 Ext, Normal Tone, Sensation Intact, Cranial Nerves 3-12 NL, Reflexes 2+ Extremities: No Clubbing, No Cyanosis, No Edema Assessment/Plan Assessment: Patient is 75-year-old gentleman with past medical history significant for hypertension, hypothyroidism and childhood rheumatic fever, significant cardiac history including myocardial infarction 2 and status post stent placement in 2014, history of complete heart block status post pacemaker placement came to the emergency room after experiencing substernal chest discomfort/burning sensation since early on day of admission. Problem #1 substernal chest discomfort most likely due to unstable angina/an STEMI but could be due to GERD -Vital signs every shift -Troponins and EKG 3 negative -Nitroglycerin paste 1 inch every 6 -Continue heparin drip -Echocardiogram 1. Normal EF of 80% with no regional wall motion abnormalities. 2. Mild left ventricular hypertrophy. 3. Trace mitral regurgitation. 4. Trace tricuspid regurgitation. 5. Pacemaker lead is noted. -Cardiology consultation with Dr. Gutierrez -Lipid profile triglyceride 161, consuming 190, HDL 49 -Continue statin 40 mg daily, patient has history of muscle pain with statin. Will start coenzyme Q 10 100 mg daily Problem #2 history of hypertension Will continue his home medications, patient was recently switched from lisinopril to valsartan Problem #3 history of hypothyroidism Will continue his home medications Patient is full code Heart healthy diet Pharmacological DVT prophylaxis heparin drip Problem List: 1. Unstable angina 2. HTN (hypertension) 3. Chest pain Pain Ratin Pain Location: n/a Pain Goal: Pain 4 or less Pain Plan: see medication Tomorrow's Labs & Rationales: CBC, CMP
[2016-04-25 09:51] LABS: PTT 72 SEC (25-37)
[2016-04-25 10:40] LABS: ABSOLUTE BASOPHIL COUNT 0.1 /CUMM (0.0-0.2); ABSOLUTE EOSINOPHIL COUNT 0.5 /CUMM (0.0-0.7); ABSOLUTE GRANULOCYTE CT 5.6 /CUMM (1.4-6.5); ABSOLUTE LYMPH COUNT 1.9 /CUMM (1.2-3.4); ABSOLUTE MONOCYTE COUNT 0.8 /CUMM (0.10-0.60); BASOPHIL % 0.6 % (0.0-2.0); EOSINOPHIL % 5.2 % (0-5); GRANULOCYTE % 63.7 % (42.2-75.2); HEMATOCRIT 41.3 % (42-52); MEAN CORPUSCULAR HGB 30.9 PG (27.0-31.0); MEAN CORPUSCULAR HGB CONC 34.3 G/DL (33.0-37.0); MEAN CORPUSCULAR VOLUME 89.9 FL (80.0-94.0); MEAN PLATELET VOLUME 8.1 FL (7.4-10.4); PLATELET COUNT 260 /CUMM (130-400); RED BLOOD CELL CT 4.59 /CUMM (4.70-6.10); WHITE BLOOD CELL COUNT 8.9 /CUMM (4.8-10.8)
[2016-04-25 12:21] VITALS: BP 130/82
[2016-04-25 15:30] VITALS: BP 122/60
[2016-04-25 17:55] VITALS: BP 120/76
[2016-04-25 22:10] LABS: PTT 68 SEC (25-37)
--- NOTE | 2016-04-25 22:18 | PN- Att Addend ---
Attending Addendum Attending Brief Note Laboratory Tests 04/25/16 2130: APTT 68 H 04/25/16 1020: Triglycerides 161 H, Cholesterol 190, LDL Cholesterol, Calc 109, HDL Cholesterol 49, Cholesterol/HDL Ratio 4 04/25/16 1020: Anion Gap 12, Estimated GFR 59 L, BUN/Creatinine Ratio 15.0, CBC w Diff NO MAN DIFF REQ, RBC 4.59 L, MCV 89.9, MCH 30.9, RDW 13.0, MPV 8.1, Gran % 63.7, Lymphocytes % 21.3, Monocytes % 9.2, Eosinophils % 5.2 H, Basophils % 0.6, Absolute Granulocytes 5.6, Absolute Lymphocytes 1.9, Absolute Monocytes 0.8 H, Absolute Eosinophils 0.5, Absolute Basophils 0.1, PUBS MCHC 34.3 04/25/16 0845: APTT 72 H 04/25/16 0130: APTT 54 H Echo 1. Normal EF of 80% with no regional wall motion abnormalities. 2. Mild left ventricular hypertrophy. 3. Trace mitral regurgitation. 4. Trace tricuspid regurgitation. 5. Pacemaker lead is noted. A/P: 1. Chest discomfort/angina; improved 2. PPM in situ 3. HTN 4. Hx hypothyroidism 5. ? GERD Patient remains HD stable. Telemetry reveals atrial pacing with no sustained VT. Patient is currently asymptomatic on IV heparin infusion. Hg and creatinine are stable. Normal pacing seen on telemetry. Will keep on IV heparin for now pending additional ischemic evaluation. No wall motion abnormalities reported by Echo report as above. Ruperto Gold MD FACC Attending MD Review Statement Attending Sign Off Attending Cosign Statement: I have: examined this patient, reviewed [facility] EMR data, personally reviewd images, discussd w/resident/PA/BILL HIKER, discussed mgmt plan w/pt.
[2016-04-25 22:44] VITALS: BP 116/68
--- NOTE | 2016-04-25 23:31 | Event Note ---
Event Note Event Note: Situation: * Possible nuclear stress test on Wednesday04/27/2016 Brief: * Patient is currently nothing by mouth starting Wednesday A/R: * Wednesday AM team: Please confirm with Dr. Gutierrez if plans for nuclear stress test
[2016-04-26 08:14] VITALS: BP 136/80
[2016-04-26 08:32] LABS: ABSOLUTE BASOPHIL COUNT 0.1 /CUMM (0.0-0.2); ABSOLUTE EOSINOPHIL COUNT 0.4 /CUMM (0.0-0.7); ABSOLUTE GRANULOCYTE CT 5.3 /CUMM (1.4-6.5); BASOPHIL % 0.6 % (0.0-2.0); EOSINOPHIL % 5.1 % (0-5); GRANULOCYTE % 60.3 % (42.2-75.2); HEMATOCRIT 38.1 % (42-52); MEAN CORPUSCULAR HGB 31.2 PG (27.0-31.0); MEAN CORPUSCULAR HGB CONC 34.4 G/DL (33.0-37.0); MEAN CORPUSCULAR VOLUME 90.6 FL (80.0-94.0); MEAN PLATELET VOLUME 8.3 FL (7.4-10.4); PLATELET COUNT 217 /CUMM (130-400); RBC DISTRIBUTION WIDTH 13.3 % (11.5-14.5); RED BLOOD CELL CT 4.21 /CUMM (4.70-6.10); WHITE BLOOD CELL COUNT 8.8 /CUMM (4.8-10.8)
--- NOTE | 2016-04-26 09:57 | PN- Housestaff ---
Assessment/Plan Assessment: Patient is 75-year-old gentleman with past medical history significant for hypertension, hypothyroidism and childhood rheumatic fever, significant cardiac history including myocardial infarction 2 and status post stent placement in 2015, history of complete heart block status post pacemaker placement came to the emergency room after experiencing substernal chest discomfort/burning sensation since early on day of admission. Problem #1 substernal chest discomfort most likely due to unstable angina/an STEMI but could be due to GERD -Vital signs every shift -Troponins and EKG 3 negative -Nitroglycerin paste 1 inch every 6 -Continue heparin drip -Echocardiogram 1. Normal EF of 80% with no regional wall motion abnormalities. 2. Mild left ventricular hypertrophy. 3. Trace mitral regurgitation. 4. Trace tricuspid regurgitation. 5. Pacemaker lead is noted. -Cardiology consultation with Dr. Gutierrez -Lipid profile triglyceride 161, consuming 190, HDL 49 -Continue statin 40 mg daily, patient has history of muscle pain with statin. Will start coenzyme Q 10 100 mg daily Problem #2 history of hypertension Will continue his home medications, patient was recently switched from lisinopril to valsartan Problem #3 history of hypothyroidism Will continue his home medications Patient is full code Heart healthy diet Pharmacological DVT prophylaxis heparin drip
--- NOTE | 2016-04-26 10:29 | PN- Housestaff ---
WILSON GARNER,RUMA 04/26/16 1029: Subjective Follow-up For: Unstable angina Tele-Events Since Last Visit: Paced rythm , heart rate in 70s, no overnight events reported Subjective: Patient today appears comfortably resting on the bed. Denies overnight events. Denies palpitations, chest pain, shortness of breath, dizziness, syncope. Able to ambulate without difficulty. Review of Systems Constitutional: Reports: see HPI. Objective Last 24 Hrs of Vital Signs/I&O Vital Signs Date Time Temp Pulse Resp B/P Pulse O2 O2 Flow FiO2 Ox Delivery Rate 04/26 1245 68 122/66 04/26 1001 72 136/80 04/26 0814 97.9 72 20 136/80 94 Room Air 04/26 0800 Room Air 04/25 2244 98.0 64 18 116/68 94 Room Air 04/25 1755 63 120/76 Intake & Output 04/26 1600 04/26 0800 04/26 0000 Intake Total 945 247.2 607.2 Output Total 500 Balance 945 -252.8 607.2 Intake, IV 127.2 127.2 Intake, Oral 945 120 480 Output, Urine 500 Physical Exam General Appearance: Alert, Oriented X3, Cooperative, No Acute Distress Skin: No Rashes Cardiovascular: Regular Rate, Normal S1, Normal S2, No Murmurs Lungs: Clear to Auscultation Abdomen: Normal Bowel Sounds, Soft, No Tenderness Extremities: No Clubbing, No Cyanosis, No Edema, Normal Pulses Current Medications: Current Medications Sig/Arley Start time Last Medication Dose Route Stop Time Status Admin Acetaminophen 650 MG .STK-MED ONE 04/26 0806 DC PO 04/26 0807 Acetaminophen 650 MG Q6P PRN 04/25 0145 AC 04/26 PO 1442 Aspirin 325 MG DAILY 04/25 1000 AC 04/26 PO 1001 Atorvastatin Calcium 40 MG 1700 04/25 1700 AC 04/25 PO 1756 Clopidogrel Bisulfate 75 MG DAILY 04/24 1135 AC 04/26 PO 1001 Coenzyme Q10 100 MG DAILY 04/25 1655 AC 04/26 PO 1001 Heparin Sodium 25,000 UNIT Q24H 04/24 1015 AC 04/25 (Porcine) IV 1558 Sodium Chloride 500 ML Levothyroxine Sodium 0.1 MG DAILY AC 04/24 1135 AC 04/26 PO 0550 Losartan Potassium 25 MG DAILY 04/24 1138 AC 04/26 PO 1001 Nitroglycerin 1 GM Q6 04/24 1200 AC 04/26 TOP 1242 Omeprazole 40 MG BID 04/24 2200 AC 04/26 PO 1001 Simethicone 40 MG Q6P PRN 04/24 1600 AC 04/24 PO 1646 Last 24 Hrs of Lab/Joe Results Last 24 Hrs of Labs/Mics: Laboratory Tests 04/26/16 0940: APTT 65 H 04/26/16 0700: Anion Gap 7, Estimated GFR 59 L, BUN/Creatinine Ratio 12.5, CBC w Diff NO MAN DIFF REQ, RBC 4.21 L, MCV 90.6, MCH 31.2 H, RDW 13.3, MPV 8.3, Gran % 60.3, Lymphocytes % 22.8, Monocytes % 11.2 H, Eosinophils % 5.1 H, Basophils % 0.6, Absolute Granulocytes 5.3, Absolute Lymphocytes 2.0, Absolute Monocytes 1.0 H, Absolute Eosinophils 0.4, Absolute Basophils 0.1, PUBS MCHC 34.4 04/25/16 2130: APTT 68 H Assessment/Plan Assessment: Patient is 75-year-old gentleman with past medical history significant for hypertension, hypothyroidism and childhood rheumatic fever, significant cardiac history including myocardial infarction 2 and status post stent placement in 2014, history of complete heart block status post pacemaker placement came to the emergency room after experiencing substernal chest discomfort/burning sensation since early on day of admission. Problem 1. Unstable angina - EKG admission showed paced rhythm, troponins 3's and negative. -Currently asymptomatic, on IV heparin and plan for nuclear stress test vs cardiac cath in a.m. - Echocardiogram done in the hospital showed a normal ejection fraction of 80% with no regional wall motion abnormalities - Continue aspirin, Plavix, statins - Patient not on beta blockers. We'll consult with cardiology and starting low- dose beta blockers if no any contraindications given history of AR in the past. 2. History of hypertension Will continue his home medications, patient was recently switched from lisinopril to valsartan 3. history of hypothyroidism Will continue his home medications 4. PPM Patient is full code Heart healthy diet Pharmacological DVT prophylaxis heparin drip Problem List: 1. Unstable angina 2. HLD (hyperlipidemia) 3. HTN (hypertension) Pain Ratin Pain Location: none Pain Goal: Remain pain free Pain Plan: none Tomorrow's Labs & Rationales: yes on heparin kelly BECERRA MD,[facility] 04/26/16 1653: Attending MD Review Statement Attending Statement Attending MD Statement: examined this patient, discuss w/resident/PA/HYSTER DRIVER, reviewed EMR data (avail), reviewed images, amended to note (see my note)
[2016-04-26 11:00] LABS: PTT 65 SEC (25-37)
[2016-04-26 12:45] VITALS: BP 122/66
[2016-04-26 15:30] VITALS: BP 116/78
--- NOTE | 2016-04-26 16:56 | PN- Att Addend ---
Attending Addendum Attending Brief Note Laboratory Tests 04/26/16 0940: APTT 65 H 04/26/16 0700: Anion Gap 7, Estimated GFR 59 L, BUN/Creatinine Ratio 12.5, CBC w Diff NO MAN DIFF REQ, RBC 4.21 L, MCV 90.6, MCH 31.2 H, RDW 13.3, MPV 8.3, Gran % 60.3, Lymphocytes % 22.8, Monocytes % 11.2 H, Eosinophils % 5.1 H, Basophils % 0.6, Absolute Granulocytes 5.3, Absolute Lymphocytes 2.0, Absolute Monocytes 1.0 H, Absolute Eosinophils 0.4, Absolute Basophils 0.1, PUBS MCHC 34.4 04/25/16 2130: APTT 68 H Vital Signs Date Time Temp Pulse Resp B/P Pulse O2 O2 Flow FiO2 Ox Delivery Rate 04/26 1530 97.8 67 20 116/78 97 Room Air 04/26 1245 68 122/66 04/26 1001 72 136/80 04/26 0814 97.9 72 20 136/80 94 Room Air 04/26 0800 Room Air 04/25 2244 98.0 64 18 116/68 94 Room Air 04/25 1755 63 120/76 A/P: 1. Chest discomfort/angina; improved 2. PPM in situ 3. HTN 4. Hx hypothyroidism 5. ? GERD Patient remains hemodynamically stable and asymptomatic. Remains on IV heparin pending additional ischemic evaluation. Keep nothing by mouth after midnight. Remains atrial paced on telemetry. Ruperto Gold MD [facility] Attending MD Review Statement Attending Sign Off Attending Cosign Statement: I have: examined this patient, reviewed [facility] EMR data, personally reviewd images, discussd w/resident/PA/DYE OPERATOR, discussed mgmt plan w/pt.
[2016-04-26 23:09] LABS: PTT 59 SEC (25-37)
[2016-04-27 00:22] VITALS: BP 120/60
[2016-04-27 07:57] LABS: ABSOLUTE BASOPHIL COUNT 0 /CUMM (0.0-0.2); ABSOLUTE EOSINOPHIL COUNT 0.5 /CUMM (0.0-0.7); ABSOLUTE LYMPH COUNT 2.4 /CUMM (1.2-3.4); ABSOLUTE MONOCYTE COUNT 0.9 /CUMM (0.10-0.60); BASOPHIL % 0.6 % (0.0-2.0); GRANULOCYTE % 51.6 % (42.2-75.2); HEMATOCRIT 38.1 % (42-52); MEAN CORPUSCULAR HGB CONC 34.5 G/DL (33.0-37.0); MEAN CORPUSCULAR VOLUME 90.1 FL (80.0-94.0); MEAN PLATELET VOLUME 8.2 FL (7.4-10.4); PLATELET COUNT 224 /CUMM (130-400); RBC DISTRIBUTION WIDTH 13.6 % (11.5-14.5); RED BLOOD CELL CT 4.23 /CUMM (4.70-6.10); WHITE BLOOD CELL COUNT 7.8 /CUMM (4.8-10.8)
--- NOTE | 2016-04-27 08:00 | PN- Housestaff ---
Subjective Follow-up For: Unstable angina Subjective: Pt is seen and examined at bedside. She does not endorse any acute complaints including chest pain, palpitation, shortness of breath, fever, chills, abdominal pain, nausea, or dysuria. Review of Systems Constitutional: Denies: see HPI. Objective Last 24 Hrs of Vital Signs/I&O Vital Signs Date Time Temp Pulse Resp B/P Pulse O2 O2 Flow FiO2 Ox Delivery Rate 04/27 0022 98.0 70 20 120/60 95 Room Air 04/26 1530 97.8 67 20 116/78 97 Room Air 04/26 1245 68 122/66 04/26 1001 72 136/80 04/26 0814 97.9 72 20 136/80 94 Room Air 04/26 0800 Room Air Intake & Output 04/27 0800 04/27 0000 04/26 1600 Intake Total 152.8 1255.6 1072.2 Output Total 450 Balance 152.8 805.6 1072.2 Intake, IV 152.8 215.6 127.2 Intake, Oral 1040 945 Output, Urine 450 Physical Exam General Appearance: Alert, Oriented X3, Cooperative Other Physical Findings: Cardiovascular: Regular Rate, Normal S1, Normal S2, No Murmurs Lungs: bilateral scattered rhonchi Abdomen: Normal Bowel Sounds, Soft, No Tenderness Extremities: No Clubbing, No Cyanosis, No Edema Current Medications: Current Medications Sig/Arley Start time Last Medication Dose Route Stop Time Status Admin Acetaminophen 650 MG .STK-MED ONE 04/26 2326 DC PO 04/26 2327 Acetaminophen 650 MG .STK-MED ONE 04/26 1439 DC PO 04/26 1440 Acetaminophen 650 MG .STK-MED ONE 04/26 0806 DC PO 04/26 0807 Acetaminophen 650 MG Q6P PRN 04/25 0145 AC 04/26 PO 2342 Aspirin 325 MG DAILY 04/25 1000 AC 04/26 PO 1001 Atorvastatin Calcium 40 MG 1700 04/25 1700 AC 04/26 PO 1812 Clopidogrel Bisulfate 75 MG DAILY 04/24 1135 AC 04/26 PO 1001 Coenzyme Q10 100 MG DAILY 04/25 1655 AC 04/26 PO 1001 Heparin Sodium 25,000 UNIT Q24H 04/24 1015 AC 04/26 (Porcine) IV 1813 Sodium Chloride 500 ML Levothyroxine Sodium 0.1 MG DAILY AC 04/24 1135 AC 04/26 PO 0550 Losartan Potassium 25 MG DAILY 04/24 1138 AC 04/26 PO 1001 Nitroglycerin 1 GM Q6 04/24 1200 AC 04/27 TOP 0643 Omeprazole 40 MG BID 04/24 2200 AC 04/26 PO 2209 Simethicone 40 MG Q6P PRN 04/24 1600 AC 04/26 PO 2356 Last 24 Hrs of Lab/Joe Results Last 24 Hrs of Labs/Mics: Laboratory Tests 04/27/16 0654: APTT Pending, CBC w Diff Pending, WBC Pending, RBC Pending, Hgb Pending, Hct Pending, MCV Pending, MCH Pending, RDW Pending, Plt Count Pending, MPV Pending, PUBS MCHC Pending 04/26/16 2140: APTT 59 H 04/26/16 0940: APTT 65 H Assessment/Plan Assessment: Patient is 75-year-old gentleman with past medical history significant for hypertension, hypothyroidism and childhood rheumatic fever, significant cardiac history including myocardial infarction 2 and status post stent placement in 2014, history of complete heart block status post pacemaker placement came to the emergency room after experiencing substernal chest discomfort/burning sensation since early on day of admission. Problem 1. Unstable angina - EKG admission showed paced rhythm, troponins 3's and negative. -Currently a symptomatic patient will be scheduled for stress test on Wednesday on an outpatient basis - Echocardiogram done in the hospital showed a normal ejection fraction of 80% with no regional wall motion abnormalities - Continue aspirin, Plavix, statins, and nitroglycerin 0.4 mg per hour as outpatient regimen past. 2. History of hypertension Will continue his home medications, per cardiology will discharge patient with losartan 25 mg. 3. history of hypothyroidism Will continue his home medications 4. PPM Disposition Patient scheduled for discharge today in follow-up with Dr. Gutierrez for cath on Wednesday. Problem List: 1. Unstable angina Pain Ratin Pain Location: NONE Pain Goal: Remain pain free Pain Plan: none: patient beibng discharged Tomorrow's Labs & Rationales: none-discharged
[2016-04-27 08:22] LABS: PTT 82 SEC (25-37)
[2016-04-27 08:24] VITALS: BP 124/72
--- NOTE | 2016-04-27 10:08 | PN- Cardiology ---
Subjective Subjective: * No chest discomfort. * sinus rhythm * normal troponins Objective Vital Signs and I&Os Vital Signs Date Time Temp Pulse Resp B/P Pulse O2 O2 Flow FiO2 Ox Delivery Rate 04/27 0824 98.2 60 20 124/72 94 Room Air 04/27 0800 Room Air 04/27 0022 98.0 70 20 120/60 95 Room Air 04/26 1530 97.8 67 20 116/78 97 Room Air 04/26 1245 68 122/66 Intake & Output 04/27 1600 04/27 0804/27 0000 04/26 1600 04/26 0000 Intake Total 152.8 1255.6 1072.2 247.2 607.2 Output Total 450 500 Balance 152.8 805.6 1072.2 -252.8 607.2 Intake, IV 152.8 215.6 127.2 127.2 127.2 Intake, Oral 1040 945 120 480 Output, Urine 450 500 Physical Exam: General: WD/ WN male in NAD; alert and oriented x 3 Neck: no JVD, no carotid bruit Heart: RRR with w/6 systolic murmur Lungs: clear bilaterally Extremities: no edema Assessment/Plan Assessment/Plan * This patient ruled out for an DC and has resolution of his chest discomfort. No dysrhythmia's are noted. We will discharge patient to home with a plan for elective cardiac catheterization on Wednesday. * Continue aspirin, Plavix, Omeprazole, NTG patch, statin and Losartan. Continue levothyroxine. Continue telemetry? No
[2016-04-27 10:42] VITALS: BP 124/72
[2016-04-27] MEDS ORDERED: COENZYME Q10100 M1 PO (10:57)
[2016-04-27] MEDS ORDERED: MINITRAN1 EAC2 TD (10:57)
[2016-04-27] MEDS ORDERED: ASPIRIN325 M2 PO (10:57)
[2016-04-27] MEDS ORDERED: OMEPRAZOLE20 M2 PO ×3 (10:57→11:14)
[2016-04-27] MEDS ORDERED: ATORVASTATIN CA40 M1 PO (10:57)
[2016-04-27] MEDS ORDERED: LOSARTAN POTASS25 M1 PO (10:57)
--- NOTE | 2016-04-27 11:18 | Patient Discharge Instructions ---
Discharge Instructions General Discharge Information You were seen/treated for: CHEST PAIN Watch for these problems: INCREASING CHEST PAIN, SHORTNESS OF BREATH Special Instructions: YOU ARE SCHEDULED FOR A CARDIAC CATHETERIZATION PROCEDURE ON WITH DR LEWIS. PLEASE FOLLOW UP. PLEASE FOLLOW UP WITH YOUR PRIMARY CARE PHYSICIAN IN 1 WEEK Diet Continue normal diet: No (HEART HEALTHY DIET) Recommended Diet: Heart Healthy Activity Full Activity/No Limits: No ( TOLERATED) Activity Self Limited: Yes ( TOLERATED) Acute Coronary Syndrome Inclusion Criteria At DC or during hospital stay patient has or had the following: ACS DIAGNOSIS No Discharge Core Measures Meds if any: Prescribed or Continued at Discharge Meds if any: NOT Prescribed or Continued at Discharge Congestive Heart Failure Inclusion Criteria At DC or during hospital stay patient has or had the following: CHF DIAGNOSIS No Discharge Core Measures Meds if any: Prescribed or Continued at Discharge Meds if any: NOT Prescribed or Continued at Discharge Cerebrovascular accident Inclusion Criteria At DC or during hospital stay patient has or had the following: CVA/TIA Diagnosis No Discharge Core Measures Meds if any: Prescribed or Continued at Discharge Meds if any: NOT Prescribed or Continued at Discharge Venous thromboembolism Inclusion Criteria VTE Diagnosis No VTE Type NONE VTE Confirmed by (Test) NONE Discharge Core Measures - Per Current guidelines, there needs to be overlap - treatment for the first 5 days of Warfarin therapy. - If discharged on Warfarin prior to 5 days of - overlap therapy, the patient will need to be - assessed for post discharge needs including - *Post discharge parental anticoagulation - *Warfarin and/or parental anticoagulation education - *Follow up date to check INR post discharge At least 5 days overlap therapy as Inpatient No Meds if any: Prescribed or Continued at Discharge Note: Overlap Therapy is Warfarin and Anticoagulant Meds if any: NOT Prescribed or Continued at Discharge
--- NOTE | 2016-05-01 10:23 | Discharge Summary ---
Hospital Course Allergies: Coded Allergies: penicillin G (UNKNOWN 06/03/15) Discharge Instructions Medications at Discharge Discharge Medications: Stop taking the following medications: Valsartan (Valsartan) 80 MG TABLET ORAL DAILY Qty = 30 Continue taking these medications: CLOPIDOGREL BISULFATE (Clopidogrel) 75 MG TABLET 1 Tablet ORAL DAILY Qty = 90 Comments: TAKE 1 TABLET EVERY DAY - SIG Obtained From Ana GIVEN: 05/08/14 @ 0924 AM Levothyroxine Sodium (Levothyroxine Sodium) 0.1 MG TAB 1 Tablet ORAL DAILY BEFORE BREAKFAST Qty = 30 Comments: TAKE 1 TABLET EVERY DAY ON EMPTY STOMACH - SIG Obtained From Ana GIVEN: 05/08/14 @ 0603 AM [place]-3/Dha/Epa/Fish Oil (Fish Oil 1,000 MG Softgel) 1,000 MG (120 MG-180 MG) CAPSULE 2 Capsule ORAL DAILY Comments: NOT GIVEN IN HOSPITAL Aspirin (Aspirin) 325 MG ECT 1 Tablet ORAL DAILY Days = 30 Start taking the following new medications: Omeprazole (Omeprazole) 20 MG CAPSULE.DR 40 Milligram ORAL DAILY Qty = 60 No Refills Atorvastatin Calcium (Atorvastatin Calcium) 40 MG TABLET 40 Milligram ORAL 5 PM Qty = 30 No Refills Nitroglycerin (Minitran) 0.4 MG/HOUR PATCH.TD24 1 PATCH TRANSDERM DAILY Days = 30 No Refills Instructions: APPLY FOR 12 HOURS AND THEN REMOVE Losartan Potassium (Losartan Potassium) 25 MG TABLET 25 Milligram ORAL DAILY Qty = 30 No Refills Aspirin (Aspirin*) 325 MG TABLET 325 Milligram ORAL DAILY Qty = 30 No Refills Coenzyme Q10 (Coenzyme Q10) 100 MG CAPSULE 100 Milligram ORAL DAILY Qty = 100 No Refills
--- NOTE | 2016-05-01 10:57 | Discharge Summary ---
See Addendum Visit Information Visit Dates Admission Date: 04/24/16 Discharge Date: 04/27/16 Hospital Course Course Attending Physician: DEBBIE GARNER PhD,ALICIA Valenzuela Primary Care Physician: CLARA HARMON MD Hospital Course: Patient is 75-year-old gentleman with past medical history significant for hypertension, hypothyroidism and childhood rheumatic fever, significant cardiac history including myocardial infarction 2 s/p stent placement in 2014, history of complete heart block s/p pacemaker placement came to the emergency room after experiencing substernal chest discomfort/burning sensation Vital signs on admission - temperature 97.5, pulse 75, respiratory rate 18, blood pressure 190/89 later on came down to 158/67 and SPO2 98% on room air. Chest pain under evaluation probably unstable angina Admitted the patient on telemetry for further observation and management. We started him on IV heparin drip, aspirin, Plavix, NTG patch, statins and losartan and did cardiac workup including echocardiogram.Echocardiogram showed LVEF of 80 %, mild LVH and without regional wall motion abnormality. Serial troponins were negative and EKGs were normal. We discharged patient with advice to have an outpatient coronaryangiography. GERD Patient symptoms are improved with IV pantoprazole. We discharged him on PO omeprazole. Allergies: Coded Allergies: penicillin G (UNKNOWN 06/03/15) Disposition Summary Disposition Principal Diagnosis: Coronary artery disease, probably unstable angina under evaluation Additional Diagnosis: Hypertension Hypothyroidism Discharge Disposition: home or self care Discharge Instructions General Discharge Information Code Status: Full Code Patient's Diet: Heart healthy diet Patient's Activity: As tolerated Follow-Up Instructions/Appts: Patient was treated for a cardiac catheterization with Dr. Gutierrez. Advised to follow-up for that. Please follow-up with your PCP within a week of discharge Medications at Discharge Discharge Medications: Stop taking the following medications: Valsartan (Valsartan) 80 MG TABLET ORAL DAILY Qty = 30 Continue taking these medications: CLOPIDOGREL BISULFATE (Clopidogrel) 75 MG TABLET 1 Tablet ORAL DAILY Qty = 90 Comments: TAKE 1 TABLET EVERY DAY - SIG Obtained From Ana GIVEN: 05/08/14 @ 0924 AM Levothyroxine Sodium (Levothyroxine Sodium) 0.1 MG TAB 1 Tablet ORAL DAILY BEFORE BREAKFAST Qty = 30 Comments: TAKE 1 TABLET EVERY DAY ON EMPTY STOMACH - SIG Obtained From Ana GIVEN: 05/08/14 @ 0603 AM [place]-3/Dha/Epa/Fish Oil (Fish Oil 1,000 MG Softgel) 1,000 MG (120 MG-180 MG) CAPSULE 2 Capsule ORAL DAILY Comments: NOT GIVEN IN HOSPITAL Aspirin (Aspirin) 325 MG ECT 1 Tablet ORAL DAILY Days = 30 Start taking the following new medications: Omeprazole (Omeprazole) 20 MG CAPSULE.DR 40 Milligram ORAL DAILY Qty = 60 No Refills Atorvastatin Calcium (Atorvastatin Calcium) 40 MG TABLET 40 Milligram ORAL 5 PM Qty = 30 No Refills Nitroglycerin (Minitran) 0.4 MG/HOUR PATCH.TD24 1 PATCH TRANSDERM DAILY Days = 30 No Refills Instructions: APPLY FOR 12 HOURS AND THEN REMOVE Losartan Potassium (Losartan Potassium) 25 MG TABLET 25 Milligram ORAL DAILY Qty = 30 No Refills Aspirin (Aspirin*) 325 MG TABLET 325 Milligram ORAL DAILY Qty = 30 No Refills Coenzyme Q10 (Coenzyme Q10) 100 MG CAPSULE 100 Milligram ORAL DAILY Qty = 100 No Refills Copies To: DEBBIE GARNER PhD,ALICIA Valenzuela
[2016-07-23] MEDS ORDERED: PROTONIX40 M3 PO (16:00)
== END 2016-04-27 14:54 | DRG 303 ==
LOC: ENRESERVDT → ENRESERVTM → ERH 08:22 → ENPENDDIS 10:45 → 1NO 10:45 → ERHI 10:45 → 1NO 13:30
PROVIDERS: Internal Medicine; Physician Assistant; Student in an Organized Health Care Education/Training Program; ADMIT Internal Medicine Interventional Cardiology
DX: I25.110 Atherosclerotic heart disease of native coronary artery with unstable angina pectoris (principal); I11.9 Hypertensive heart disease without heart failure; E03.9 Hypothyroidism, unspecified; Z95.0 Presence of cardiac pacemaker; E78.5 Hyperlipidemia, unspecified; Z95.5 Presence of coronary angioplasty implant and graft; I25.2 Old myocardial infarction; Z82.49 Family history of ischemic heart disease and other diseases of the circulatory system
CPT/HCPCS: 1NSP; 36415; 82436; 93005; 93010; 93306; 96374; J1644; J3490

== ENCOUNTER → 2016-07-28 | Day surgery (SDC) | payer OTHER, MEDICARE ==
[~2016-07-28] VITALS: Ht 160 cm; Wt 81.6 kg
[~2016-07-28] MED LIST changes: +ASPIRIN325 M2 PO; +ATORVASTATIN CA40 M1 PO; +COENZYME Q10100 M1 PO; +LOSARTAN POTASS25 M1 PO; +MINITRAN1 EAC2 TD; +OMEPRAZOLE20 M2 PO; +PROTONIX40 M3 PO; +VALSARTAN80 M1 PO
--- NOTE | 2016-07-28 08:03 | Operative Report ---
Operative/Inv Procedure Report Surgery Date: 07/28/16 Name of Procedure: Cataract extraction lens implantation left eye Pre-Operative Diagnosis: Age-related cataract left eye 20/40 vision 20/150 glare vision Post-Operative Diagnosis: Same Estimated Blood Loss: none Surgeon/Play Therapist: JARETT GARNER,DELMY Holder Anesthesia: local monitored anesthesi Complications: None Operative/Procedure Note Note: The patient was brought to the operating room standard monitoring equipment was attached the patient was prepped and draped in the usual fashion for intraocular surgery. A lid speculum was placed to retract the lids. The case was begun by making a temporal incision with a 2.4 mm keratome. The eye was stabilized with a Galvan ring during this incision. 1 mL of non-preserved lidocaine was introduced into the anterior chamber to provide anesthesia. The anterior chamber was then filled and deepened with viscoelastic. A curvilinear capsulorrhexis was achieved using a 30-gauge needle and is a cystotome and capsulorrhexis was finished using a Utrata forceps. A second or paracentesis incision was made temporally with a 1 mm MVR blade. The lens was then hydrodissected with balanced salt solution and found to be rotatable. The lens was emulsified using phacoemulsification and a modified four-quadrant cracking technique. The residual cortical material was removed using automated irrigation and aspiration and as much of the anterior capsular rim was cleaned as well as possible. The posterior capsule was cleaned first with the automated machine on a low setting and then manually with a Reynaldo squeegee. The capsular bag was deepened with viscoelastic. The lens a Technis 1 18.5 diopter placed into the bag under direct visualization and rotated so that the haptics were at 12 and 6:00. Viscoelastic was then removed from the eye by flushing it out and then by automated irrigation and aspiration. The eye was pressurized to a normal tone. 1/10 of a cc of vancomycin solution was introduced into the anterior chamber to provide antibiotic prophylaxis. The wounds were sealed by hydrating the stroma adjacent to them and the eye was left at a proper tone after the wounds were checked and found not to be leaking. The lid speculum was removed from the orbit. Antibiotic and steroid drops were placed on the eye and then the eye was shielded. Monitoring equipment was removed from the patient and the patient was removed from the operative suite to the holding area. The patient tolerated the procedure well and will be seen in the office tomorrow.
== END ==
LOC: STS 04:55
DX: H25.9 Unspecified age-related cataract (principal); E78.00 Pure hypercholesterolemia, unspecified; I10 Essential (primary) hypertension; Z95.0 Presence of cardiac pacemaker
CPT/HCPCS: J2250; V2632

== ENCOUNTER → 2016-09-01 | Day surgery (SDC) | payer OTHER, MEDICARE ==
[~2016-09-01] VITALS: Ht 160 cm; Wt 81.2 kg
--- NOTE | 2016-09-01 12:22 | Operative Report ---
Operative/Inv Procedure Report Surgery Date: 09/01/16 Name of Procedure: Cataract extraction lens implantation right eye Pre-Operative Diagnosis: Age-related cataract right eye 40 vision 20/70 glare vision Post-Operative Diagnosis: Same Estimated Blood Loss: none Surgeon/Antique Collector: JARETT GARNER,DELMY Holder Anesthesia: local monitored anesthesi Complications: None Operative/Procedure Note Note: The patient was brought to the operating room standard monitoring equipment was attached the patient was prepped and draped in the usual fashion for intraocular surgery. A lid speculum was placed to retract the lids. The case was begun by making a temporal incision with a 2.4 mm keratome. The eye was stabilized with a Galvan ring during this incision. 1 mL of non-preserved lidocaine was introduced into the anterior chamber to provide anesthesia. The anterior chamber was then filled and deepened with viscoelastic. A curvilinear capsulorrhexis was achieved using a 30-gauge needle and is a cystotome and capsulorrhexis was finished using a Utrata forceps. A second or paracentesis incision was made temporally with a 1 mm MVR blade. The lens was then hydrodissected with balanced salt solution and found to be rotatable. The lens was emulsified using phacoemulsification and a modified four-quadrant cracking technique. The residual cortical material was removed using automated irrigation and aspiration and as much of the anterior capsular rim was cleaned as well as possible. The posterior capsule was cleaned first with the automated machine on a low setting and then manually with a Reynaldo squeegee. The capsular bag was deepened with viscoelastic. The lens a Technis 1 18.5 diopter placed into the bag under direct visualization and rotated so that the haptics were at 12 and 6:00. Viscoelastic was then removed from the eye by flushing it out and then by automated irrigation and aspiration. The eye was pressurized to a normal tone. 1/10 of a cc of vancomycin solution was introduced into the anterior chamber to provide antibiotic prophylaxis. The wounds were sealed by hydrating the stroma adjacent to them and the eye was left at a proper tone after the wounds were checked and found not to be leaking. The lid speculum was removed from the orbit. Antibiotic and steroid drops were placed on the eye and then the eye was shielded. Monitoring equipment was removed from the patient and the patient was removed from the operative suite to the holding area. The patient tolerated the procedure well and will be seen in the office tomorrow.
== END ==
LOC: STS 04:41
DX: H25.9 Unspecified age-related cataract (principal); I10 Essential (primary) hypertension; E78.00 Pure hypercholesterolemia, unspecified; Z95.0 Presence of cardiac pacemaker
CPT/HCPCS: J2250; J2405; V2632

== ENCOUNTER 2017-07-15 04:32 | Emergency (ER) | payer OTHER, MEDICARE ==
--- NOTE | 2017-07-15 04:48 | ED GI/GU/ABDOMINAL COMPLAINT ---
History of Present Illness General Chief Complaint: General Adult Stated Complaint: NAUSEA, VOMITING AFTER EATING SOMETHING PER PT. Source: patient, family, old records Exam Limitations: no limitations Vital Signs & Intake/Output Vital Signs & Intake/Output Vital Signs Date Time Temp Pulse Resp B/P B/P Pulse O2 O2 Flow FiO2 Mean Ox Delivery Rate 07/15 0725 98.2 66 16 133/97 96 Room Air 07/15 0517 155/79 07/15 0442 98.1 67 22 178/94 96 Room Air Room Air Allergies Coded Allergies: penicillin G (UNKNOWN 06/03/15) Triage Note: 76YO MALE TO TRIAGE W CO N,V,D THAT BEGAN EARLIER TONITE Triage Nurses Notes Reviewed? yes HPI: Patient presents with nausea vomiting diarrhea that started earlier this evening. Patient did not eat anything out of the urinary. Patient has downgoing cramp abdominal pain. He develop pain is in the epigastric area. There is no radiation. No aggravating or mitigating factors. He rates the pain at 4/10. (Syed GARNER,Jac Flores) Reconcile Medications Aspirin 325 MG ECT 1 TAB PO DAILY HEART HEALTH Atorvastatin Calcium 40 MG TABLET 40 MG PO 1700 CHOLESTEROL CLOPIDOGREL BISULFATE (Clopidogrel) 75 MG TABLET 1 TAB PO DAILY BLOOD THINNER (Reported) Hyoscyamine Sulfate (Levsin-Sl) 0.125 MG TAB.SUBL 1-2 TAB SL Q4P PRN abdominal pain Levothyroxine Sodium 0.1 MG TAB 1 TAB PO DAILY AC THYROID (Reported) Losartan Potassium 25 MG TABLET 25 MG PO DAILY CARDIOVASCULAR [place]-3/Dha/Epa/Fish Oil (Fish Oil 1,000 MG Softgel) 1,000 MG (120 MG-180 MG) CAPSULE 2 CAP PO DAILY SUPPLEMENT (Reported) Ondansetron (Zofran Odt) 4 MG TAB.RAPDIS 1 TAB SL TID PRN nausea vomiting Pantoprazole Sodium (Protonix) 40 MG TABLET.DR 1 TAB PO DAILY GERD (Reported) (Janessa GARNER,Oliver) Past History Travel History Traveled to [place] past 21 day No Medical History Any Pertinent Medical History? 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 SON (myocardial infarction). Hx Contributory? No (Syed GARNER,Jac Flores) Review of Systems Review of Systems Constitutional: Reports: no symptoms. EENTM: Reports: no symptoms. Respiratory: Reports: no symptoms. Cardiovascular: Reports: no symptoms. GI: Reports: see HPI, abdominal pain, diarrhea, nausea, vomiting. Genitourinary: Reports: no symptoms. Musculoskeletal: Reports: no symptoms. Skin: Reports: no symptoms. Neurological/Psychological: Reports: no symptoms. Hematologic/Endocrine: Reports: no symptoms. Immunologic/Allergic: Reports: no symptoms. All Other Systems: Reviewed and Negative (Syed GARNER,Jac Flores) Physical Exam Physical Exam General Appearance: well developed/nourished, alert, awake, anxious, moderate distress Head: atraumatic, normal appearance Eyes: Bilateral: PERRL, EOMI. Ears, Nose, Throat, Mouth: hearing grossly normal, DRY MUCOSA Neck: normal inspection, supple, full range of motion Respiratory: normal breath sounds, chest non-tender, no respiratory distress, lungs clear Cardiovascular: regular rate/rhythm, normal peripheral pulses Gastrointestinal: normal bowel sounds, soft, non-tender, no organomegaly Extremities: normal range of motion Neurologic/Psych: no motor/sensory deficits, awake, alert, oriented x 3, normal gait, normal mood/affect Skin: intact, normal color, warm/dry Core Measures ACS in differential dx? No Sepsis Present: No Sepsis Focused Exam Completed? No (Syed GARNER,Jac Flores) Progress Differential Diagnosis: AMI, biliary colic, colon cancer, cholecystitis, diverticulitis, gastritis, hepatitis, ischemic bowel, inflamm bowel dis, pancreatitis, peptic ulcer, PUD/GERD Plan of Care: Orders Procedure Date/time Status TROPONIN LEVEL 07/15 0900 Complete LACTIC ACID 07/15 0900 Complete BASIC METABOLIC PANEL 07/15 0900 Complete Add-on Test (ER Only) 04/19 0532 Active Telemetry/Continuous Improvement Facilitator 07/15 509 Active LACTIC ACID 07/15 449 Complete URINALYSIS 07/15 444 Complete TROPONIN LEVEL 07/15 444 Complete LIPASE 07/15 444 Complete COMPREHENSIVE METABOLIC PANEL 07/15 444 Complete CBC WITHOUT DIFFERENTIAL 07/15 444 Complete AMYLASE 07/15 444 Complete EKG 07/15 444 Active Laboratory Tests 07/15/17 0908: Anion Gap 11, Estimated GFR > 60, BUN/Creatinine Ratio 15.0, Glucose 112 H, Lactic Acid 1.0, Calcium 8.6, Troponin I < 0.01 07/15/17 0646: Urine Color STRAW, Urine Clarity CLEAR, Urine pH 6.5, Ur Specific [place] <= 1.005, Urine Protein NEG, Urine Ketones NEG, Urine Nitrite NEG, Urine Bilirubin NEG, Urine Urobilinogen 0.2, Ur Leukocyte Esterase NEG, Ur Microscopic EXAM NOT REQUIRED, Urine Hemoglobin NEG, Urine Glucose NEG 07/15/17 0450: Anion Gap 17 H, Estimated GFR 59 L, BUN/Creatinine Ratio 15.0, Glucose 153 H, Lactic Acid 2.8 H, Calcium 10.1, Total Bilirubin 0.8, AST 37, ALT 36, Alkaline Phosphatase 86, Troponin I < 0.01, Total Protein 7.7, Albumin 4.5, Globulin 3.2, Albumin/Globulin Ratio 1.4, Amylase 67, Lipase 122, CBC w Diff NO MAN DIFF REQ, RBC 4.92, MCV 89.4, MCH 31.0, MCHC 34.7, RDW 14.0, MPV 8.2, Gran % 69.7, Lymphocytes % 19.6 L, Monocytes % 7.7, Eosinophils % 2.6, Basophils % 0.4, Absolute Granulocytes 9.3 H, Absolute Lymphocytes 2.6, Absolute Monocytes 1.0 H, Absolute Eosinophils 0.3, Absolute Basophils 0.1 Diagnostic Imaging: Viewed by Me: CT Scan. Discussed w/RAD: CT Scan. Radiology Impression: PATIENT: MARY ARMSTRONG JR PRESENT AGE: 76 PATIENT ACCOUNT NO: [id number] : 40 LOCATION: [facility] ORDERING PHYSICIAN: Jac Lynch MD SERVICE DATE: 07/15/17 EXAM TYPE: CAT - CT ABD & PELVIS W IV CONTRAST EXAMINATION: CT ABDOMEN AND PELVIS WITH CONTRAST CLINICAL INFORMATION: Abdominal pain COMPARISON: Ultrasound performed 10/24/2010. TECHNIQUE: Multidetector volumetric imaging was performed of the abdomen and pelvis following IV administration of 94 mL of Optiray 320 intravenous contrast. Sagittal and coronal reformatted images were obtained on the technologist's workstation. DLP: 478 mGy-cm FINDINGS: LUNG BASES: Minimal bibasilar atelectasis. Coronary artery calcifications are present. Cardiac pacer leads. LIVER, GALLBLADDER, AND BILIARY TREE: The liver is normal in size, shape, and attenuation. No focal hepatic lesion or biliary ductal dilatation is present. The gallbladder is unremarkable with no evidence of radiopaque gallstones, gallbladder wall thickening, or obvious pericholecystic inflammatory changes. PANCREAS: There is mild fatty atrophy of the pancreatic parenchyma with no focal abnormality. SPLEEN: Unremarkable. ADRENAL GLANDS: Unremarkable. KIDNEYS AND URETERS: The kidneys are normal in size, shape, and attenuation. No hydronephrosis, hydroureter, or calculi seen. No perinephric stranding. Multiple right renal cysts are noted. BLADDER: Unremarkable. GASTROINTESTINAL TRACT: The stomach is unremarkable. Duodenal diverticulum noted. The small bowel is normal in caliber without obstruction. There is a normal appendix. No colonic wall thickening or inflammatory change. There is diverticulosis at the distal descending and sigmoid colon. No diverticulitis. No free air or free fluid. ABDOMINAL WALL: No significant hernia is appreciated. LYMPH NODES: Normal. VASCULAR: Normal caliber aorta. Mild atherosclerotic calcifications. PELVIC VISCERA: The prostate and seminal vesicles are unremarkable. OSSEOUS STRUCTURES: No acute or suspicious osseous abnormality. IMPRESSION: No acute findings of the abdomen or pelvis. No inflammatory changes. Mild fatty atrophy of the pancreas noted. Right renal cysts. Diverticulosis without diverticulitis. DICTATED BY: Kelvin Swanson MD DATE/TIME DICTATED:07/15/17605 NETWORK SYSTEMS ANALYST: MERCEDES DATE/TIME TRANSCRIBED:07/15/17605 CONFIDENTIAL, DO NOT COPY WITHOUT APPROPRIATE AUTHORIZATION. <Electronically signed in Other Vendor System> SIGNED BY: Kelvin Swanson MD 07/15/17616 Initial ED EKG: pacemaker rhythm Rhythm Strip: PACED Hand-Off Endorsed To: Oliver Riddle MD Endorsed Time: 0700 Pending: labs (Syed GARNER,Jac Flores) Departure Departure Condition: Stable Referrals: Patient Has No Primary Care Dr (PCP/Family) Departure Forms: Customer Survey General Discharge Information (Syed GARNER,Jac Flores) Departure Time of Disposition: 1137 Disposition: HOME OR SELF CARE Clinical Impression Primary Impression: Abdominal pain, unspecified site Secondary Impressions: Nausea and vomiting Prescriptions: Current Visit Scripts Ondansetron (Zofran Odt) 1 TAB SL TID PRN nausea vomiting #10 TAB Hyoscyamine Sulfate (Levsin-Sl) 1-2 TAB SL Q4P PRN abdominal pain #30 TAB (Janessa GARNER,Oliver)
[2017-07-15 05:03] LABS: ABSOLUTE BASOPHIL COUNT 0.1 /CUMM (0.0-0.2); ABSOLUTE EOSINOPHIL COUNT 0.3 /CUMM (0.0-0.7); ABSOLUTE GRANULOCYTE CT 9.3 /CUMM (1.4-6.5); ABSOLUTE LYMPH COUNT 2.6 /CUMM (1.2-3.4); BASOPHIL % 0.4 % (0.0-2.0); EOSINOPHIL % 2.6 % (0-5); GRANULOCYTE % 69.7 % (42.2-75.2); MEAN CORPUSCULAR HGB CONC 34.7 G/DL (33.0-37.0); MEAN CORPUSCULAR VOLUME 89.4 FL (80.0-94.0); MEAN PLATELET VOLUME 8.2 FL (7.4-10.4); PLATELET COUNT 307 /CUMM (130-400); RED BLOOD CELL CT 4.92 /CUMM (4.70-6.10); WHITE BLOOD CELL COUNT 13.3 /CUMM (4.8-10.8)
--- NOTE | 2017-07-15 06:17 | CT SCAN REPORT ---
EXAMINATION: CT ABDOMEN AND PELVIS WITH CONTRAST CLINICAL INFORMATION: Abdominal pain COMPARISON: Ultrasound performed 10/24/2010. TECHNIQUE: Multidetector volumetric imaging was performed of the abdomen and pelvis following IV administration of 94 mL of Optiray 320 intravenous contrast. Sagittal and coronal reformatted images were obtained on the technologist's workstation. DLP: 478 mGy-cm FINDINGS: LUNG BASES: Minimal bibasilar atelectasis. Coronary artery calcifications are present. Cardiac pacer leads. LIVER, GALLBLADDER, AND BILIARY TREE: The liver is normal in size, shape, and attenuation. No focal hepatic lesion or biliary ductal dilatation is present. The gallbladder is unremarkable with no evidence of radiopaque gallstones, gallbladder wall thickening, or obvious pericholecystic inflammatory changes. PANCREAS: There is mild fatty atrophy of the pancreatic parenchyma with no focal abnormality. SPLEEN: Unremarkable. ADRENAL GLANDS: Unremarkable. KIDNEYS AND URETERS: The kidneys are normal in size, shape, and attenuation. No hydronephrosis, hydroureter, or calculi seen. No perinephric stranding. Multiple right renal cysts are noted. BLADDER: Unremarkable. GASTROINTESTINAL TRACT: The stomach is unremarkable. Duodenal diverticulum noted. The small bowel is normal in caliber without obstruction. There is a normal appendix. No colonic wall thickening or inflammatory change. There is diverticulosis at the distal descending and sigmoid colon. No diverticulitis. No free air or free fluid. ABDOMINAL WALL: No significant hernia is appreciated. LYMPH NODES: Normal. VASCULAR: Normal caliber aorta. Mild atherosclerotic calcifications. PELVIC VISCERA: The prostate and seminal vesicles are unremarkable. OSSEOUS STRUCTURES: No acute or suspicious osseous abnormality. IMPRESSION: No acute findings of the abdomen or pelvis. No inflammatory changes. Mild fatty atrophy of the pancreas noted. Right renal cysts. Diverticulosis without diverticulitis.
[2017-07-15] MEDS ORDERED: LEVSIN-SL0.125 MG SL (11:39)
[2017-07-15] MEDS ORDERED: ZOFRAN ODT4 M1 SL (11:39)
[2017-07-15 11:53] VITALS: BP 160/77
== END 2017-07-15 11:54 ==
LOC: ERH 04:32
PROVIDERS: Emergency Medicine
DX: R11.2 Nausea with vomiting, unspecified (principal); R10.13 Epigastric pain
CPT/HCPCS: 74177; 81003; 93005; 93010; 96361; 96374; J2405